=== PATIENT | male | born 1960 | race Caucasian/White ===

== ENCOUNTER 2022-10-02 11:27 | Emergency (ER) | payer BC, SELFPAY ==
[2022-10-02 11:41] VITALS: BP 135/101; PULSE 99; RESP 16; TEMP 36.3; O2SAT 100
--- NOTE | 2022-10-02 12:01 | ED.GENADULT ---
HPI - General Adult General Chief complaint: Headache Stated complaint: NO ENERGY/HEAD PRESSURE Time Seen by Provider: 10/02/22 11:47 Source: patient, family () and RN notes reviewed Mode of arrival: ambulatory Limitations: no limitations History of Present Illness HPI narrative: Patient presents today complaining of a 2 week history of midline to left sided head pressure. Denies pain. He is also reporting decreased energy, difficulty concentrating, dizziness and lightheadedness. also states patient has had some unexpected weight loss over the past 6 weeks, but cannot specify how much. Patient states he has these episodes daily in the typically last from approximately 9:00 a.m. to 2:00 p.m. before resolving. Denies nausea, vomiting, fever, sweats and chills, sinus or URI symptoms, chest pain, shortness of breath, abdominal pain. Patient takes herbal supplements for his symptoms. Patient states it has been approximately 20 years since he has had a PCP or had any routine medical care. Related Data Home Medications Medication Instructions Recorded Confirmed No Home Medications 10/02/22 10/02/22 Allergies Allergy/AdvReac Type Severity Reaction Status Date / Time No Known Allergies Allergy Verified 10/02/22 12:13 Review of Systems Review of Systems: CONSTITUTIONAL: Denies body aches, fever, chills, or sweats.+ fatigue, unexpected weight loss EYES: Denies visual changes, redness, or discharge. ENT: Denies rhinorrhea, congestion, sore throat, or otalgia. CARDIOVASCULAR: Denies chest pain, palpitations, or edema. RESPIRATORY: Denies cough or dyspnea. GASTROINTESTINAL: Denies abdominal pain, nausea, vomiting, or diarrhea. GENITOURINARY: Denies dysuria or hematuria. SKIN: Denies rash, itching, or wounds. MUSCULOSKELETAL: Denies back pain, joint pain, or myalgia. NEUROLOGIC: Denies headache, numbness, tingling, or weakness.++ head pressure , difficulty concentrating, dizziness, lightheadedness PSYCH: Denies depression or anxiety. PENDING SALE TO [facility] Family History Family History Mother Patient's mother is in good health Father Patient's father is in good health Sibling Patient's sister is in good health Patient's brother is in good health Social History Social History (Reviewed 10/02/22 @ 12:13 by Eloise Yañez, [facility], ) Smoking status: Never smoker Alcohol intake: never Comments At time of signature, I have reviewed and agree with nursing past medical, surgical, social and family history unless otherwise noted. Please see nursing chart for further information. There is no relevant family history pertinent to the presenting complaint Exam Narrative: GENERAL: Well-appearing, well-nourished, and in no acute distress. HEAD: Normocephalic, atraumatic. EYES: EOMI. PERRL. No nystagus. No redness or drainage. Conjunctivae normal. ENT: Mucous membranes pink and moist. Nares clear. No rhinorrhea. TMs normal bilaterally. Throat normal. Uvula midline. NECK: Normal AROM. Supple. No lymphadenopathy. CHEST: No respiratory distress. Clear to auscultation. HEART: Regular rate and rhythm. No murmur appreciated. Normal peripheral pulses. ABDOMEN: Soft, nontender, nondistended, normal active bowel sounds. EXTREMITIES: Normal range of motion. No edema. Dorsiflexion and plantar flexion equal and strong against resistance. Hand electrician's helper equal and strong. SKIN: Warm, dry, no rash. Capillary refill normal. Normal skin turgor. NEURO: No focal deficits. Alert and oriented x3. Gait steady. PSYCH: Patient talking in tangents. Difficult to get straight answers to questions. Course Course Level of Care: Express Care Visit Vital Signs Vital signs: Vital Signs Temperature 97.4 F L 10/02/22 11:41 Pulse Rate 99 10/02/22 11:41 Respiratory Rate 16 10/02/22 11:41 Blood Pressure 135/101 H 10/02/22 11:41 Pulse Oximetry 100 10/02/22 11:41
== END 2022-10-02 12:11 | disposition short-term general hospital (02) ==
PROVIDERS: Emergency Provider Nurse Practitioner
DX: R41.840 Attention and concentration deficit (principal); R63.4 Abnormal weight loss; R51.9 Headache, unspecified
CPT/HCPCS: 99212; G0463

== ENCOUNTER 2022-10-02 12:28 | Emergency (ER) | payer BC, SELFPAY ==
--- NOTE | ~2022-10-02 | CT_ITS ---
EXAMINATION: CT brain wo con DATE: 10/02/2022 13:46 INDICATION: Intermittent headaches with confusion for 2 weeks TECHNIQUE: Computed tomography (CT) of the head was performed without intravenous contrast. The mA wa s adjusted according to patient size. Iterative reconstruction technique was employed. Exam dose: 60 5.33 mGy-cm total exam DLP. COMPARISON: None FINDINGS: No intracranial mass lesion or hemorrhage or cerebrovascular accident is detected. No midli ne shift or mass effect. No subdural or epidural hematoma. No fracture or bone destruction of the cranial vault. No significant abnormality of the mastoid air c ells are included paranasal sinuses. IMPRESSION: No significant abnormality Reviewed, dictated and finalized at [facility]. Reviewed, dictated and finalized at location [facility]. IMPRESSION: No significant abnormality
[2022-10-02 12:35] VITALS: BP 130/92; PULSE 90; RESP 16; TEMP 36.5; O2SAT 98
--- NOTE | 2022-10-02 13:27 | ED.HA ---
HPI - Headache General Chief Complaint: Headache Stated Complaint: pressure in head/lethargy Time Seen by Provider: 10/02/22 12:59 History of Present Illness HPI Narrative: Patient is a 62-year-old male presenting with intermittent headaches. Patient states over the last several weeks he has had intermittent midline pressure-like headaches that seem to come on randomly. States that he feels confused during these episodes. States that the pressure increases for several hours and then will spontaneously improved. States he has not taken any medications as he likes to stay away from them. States that during these episodes he feels like his vision is a bit blurrier than normal. He denies numbness or weakness, speech changes, ataxia. Denies fevers or chills, chest pain, shortness of breath, cough, abdominal pain, nausea or vomiting, leg swelling. Related Data Home Medications Medication Instructions Recorded Confirmed No Home Medications 10/02/22 10/02/22 Allergies Allergy/AdvReac Type Severity Reaction Status Date / Time No Known Allergies Allergy Verified 10/02/22 12:13 Review of Systems Review of Systems: All systems reviewed & are unremarkable except as noted in HPI and below PMFSH Family History Family History Mother Patient's mother is in good health Father Patient's father is in good health Sibling Patient's sister is in good health Patient's brother is in good health Social History Social History Smoking status: Never smoker Alcohol intake: never Exam Narrative: GENERAL: Well-appearing, well-nourished, and in no acute distress. HEAD: Normocephalic, atraumatic. EYES: PERRLA and EOMI. ENT: Nares clear, no rhinorrhea or epistaxis. Mucous membranes moist. NECK: Supple. CHEST: No respiratory distress. HEART: Regular rate and rhythm. ABDOMEN: nondistended EXTREMITIES: Normal range of motion. No edema. SKIN: Warm, dry, no rash. NEURO: No focal deficits. Alert and oriented x3. no pronator drift, coordination is intact PSYCH: Normal mood and affect. Course Vital Signs Vital signs: Vital Signs Temperature 97.7 F 10/02/22 12:35 Pulse Rate 90 10/02/22 12:35 Respiratory Rate 16 10/02/22 12:35 Blood Pressure 130/92 H 10/02/22 12:35 Pulse Oximetry 98 10/02/22 12:35 Temperature 97.7 F 10/02/22 12:35 Pulse Rate 90 10/02/22 12:35 Respiratory Rate 16 10/02/22 12:35 Blood Pressure 130/92 H 10/02/22 12:35 Pulse Oximetry 98 10/02/22 12:35 MDM - Headache MDM Narrative Medical decision making narrative: Patient is a 62-year-old male presenting with intermittent headache for the last several weeks. Vitals within normal limits. Exam is unremarkable. Patient is neurologically intact. Patient declines medications at this time. We will obtain CT brain. CT brain shows no acute abnormalities. On reevaluation, the patient is sitting comfortably. Discussed the reassuring imaging. Advised that he follow-up with primary care and neurology. Appropriate return precautions given. Patient voiced understanding and is agreeable with plan. Discharged in stable condition. Differential Diagnosis Differential diagnosis: Likely headache Medical Records Attestation: I reviewed the patient's medical records. Imaging Data Radiologist's impression: ITS Impressions Head CT 10/02/22 14:18 IMPRESSION: No significant abnormality Critical Care Time Critical Care Time Critical Care Time: No Discharge Plan Discharge Clinical Impression: Headache, Difficulty concentrating Patient Disposition: Home, Self-Care Condition: Stable Instructions: Antibiotic Form, Acute Headache (ED) Additional Instructions: The CT scan of your brain today shows no abnormalities. Please follow-up with primary care and neurology. You may use T
== END 2022-10-02 15:15 | disposition home or self-care (01) ==
PROVIDERS: Emergency Provider Emergency Medicine
DX: R51.9 Headache, unspecified (principal); R41.89 Other symptoms and signs involving cognitive functions and awareness
CPT/HCPCS: 70450; 99284

== ENCOUNTER 2022-11-11 17:44 | Inpatient (IN) | payer BC, SELFPAY ==
[2022-11-11] VITALS (16 sets, daily range): BP systolic 100–145; BP diastolic 77–90; PULSE 65–89; RESP 15–24; TEMP 36.1–36.8; O2SAT 97–100; BMI 20.3
--- NOTE | ~2022-11-11 | XR_ITS ---
Portable chest x-ray Comparison: None Clinical History: Aspiration pneumonia Findings: Lungs are clear, without focal consolidation or pleural effusion. Cardiomediastinal silho uette is unremarkable. Bones and soft tissues are unremarkable. Impression: Clear lungs. Reviewed, dictated and finalized at location [facility]. Impression: Clear lungs.
--- NOTE | ~2022-11-11 | CT_ITS ---
EXAMINATION: CT brain wo con DATE: 11/11/2022 18:44 INDICATION: Altered mental status. TECHNIQUE: Computed tomography (CT) of the head was performed without intravenous contrast. The mA wa s adjusted according to patient size. Iterative reconstruction technique was employed. The dose-lengt h product was 681.00 mGy-cm. COMPARISON: Head CT 10/02/2022 FINDINGS: There is no intracranial hemorrhage, acute infarction, or abnormal intracranial mass lesion . The ventricles are normal in size. There is anteroposterior elongation of the ocular globes. There is mild mucosal thickening in the ethmoid sinuses. The mastoid air cells are normal. IMPRESSION: 1. Normal brain. Reviewed, dictated and finalized at location E. IMPRESSION: 1. Normal brain.
--- NOTE | 2022-11-11 17:54 | ECG_ITS ---
Measurements Intervals [place] Rate: 81 P: 71 SC: 146 QRS: 85 QRSD: 142 T: 55 QT: 434 QTc: 507 Interpretive Statements SINUS RHYTHM RIGHT BUNDLE BRANCH BLOCK ABNORMAL ECG NO PREVIOUS ECG AVAILABLE FOR COMPARISON Electronically Signed On 11-11-2022 20:29:38 CDT by Ezio Hayes D.O.
--- NOTE | 2022-11-11 18:10 | ED.AMS ---
HPI - Altered Mental Status General Chief Complaint: Altered Mental Status <Yessica Ordaz APRN - Last Filed: 11/12/22 02:48> Stated Complaint: unresponsive <Yessica Ordaz APRN - Last Filed: 11/12/22 02:48> Time Seen by Provider: 11/11/22 17:59 <Yessica Ordaz APRN - Last Filed: 11/12/22 02:48> Source: patient <Yessica Ordaz APRN - Last Filed: 11/12/22 02:48> Mode of arrival: ambulatory <Yessica Ordaz APRN - Last Filed: 11/12/22 02:48> Limitations: no limitations <Yessica Ordaz APRN - Last Filed: 11/12/22 02:48> History of Present Illness HPI narrative: 62 year old male brought in by EMS with concerns of being un responsive. is at the bedside and states that he went to his care this morning about 8 am and has been sitting there ever since. He has not responded to her all day. Was slumped over the stearing wheel at that is how EMS found him. He was brought her with ice packs cooling him. Per he had no access to medications. She says he doesn't like medications and he would throw them away. <Yessica Ordaz APRN - Last Filed: 11/12/22 02:48> MD complaint: decreased responsiveness <Yessica Ordaz APRN - Last Filed: 11/12/22 02:48> Onset (ago): hour(s) <Yessica Ordaz APRN - Last Filed: 11/12/22 02:48> Timing confirmed by: spouse <Yessica Ordaz APRN - Last Filed: 11/12/22 02:48> Consistency of symptoms: constant <Yessica Ordaz APRN - Last Filed: 11/12/22 02:48> Related Data Home Medications: Home Medications Medication Instructions Recorded Confirmed divalproex 500 mg tablet,delayed 500 mg PO HS 11/11/22 11/11/22 release ergocalciferol (vitamin D2) 1,250 1,250 unit PO WEEKLY 11/11/22 11/11/22 mcg (50,000 unit) capsule escitalopram oxalate 20 mg tablet 20 mg PO QAM 11/11/22 11/11/22 quetiapine 100 mg tablet 100 mg PO HS 11/11/22 11/11/22 <Yessica Ordaz APRN - Last Filed: 11/12/22 02:48> Allergies/Adverse Reactions: Allergies Allergy/AdvReac Type Severity Reaction Status Date / Time No Known Allergies Allergy Verified 11/11/22 18:20 <Yessica Ordaz APRN - Last Filed: 11/12/22 02:48> Review of Systems Review of Systems: ROS unobtainable: Yes unobtainable due to mental status <Yessica Ordaz APRN - Last Filed: 11/12/22 02:48> [facility] Past Medical History Medical History: Medical History (Updated 11/12/22 @ 02:38 by Yessica Ordaz APRN) Bipolar disorder <Yessica Ordaz APRN - Last Filed: 11/12/22 02:48> Family History Family History: Family History (Updated 11/11/22 @ 23:26 by Rosanne Jean RN) Mother Hypertension Father Crohn disease Sibling Patient's brother is in good health Patient's sister is in good health <Yessica Ordaz APRN - Last Filed: 11/12/22 02:48> Social History Social History: Social History Smoking status: Never smoker Alcohol intake: never Substance use: never Spiritual care concerns: No <Yessica Ordaz APRN - Last Filed: 11/12/22 02:48> Exam Const: General: cachectic and underweight <Yessica Ordaz APRN - Last Filed: 11/12/22 02:48> Orientation/consciousness: patient obtunded <Yessica Ordaz APRN - Last Filed: 11/12/22 02:48> HENMT: Head: atraumatic <Yessica Ordaz APRN - Last Filed: 11/12/22 02:48> Face/Nose/Sinus: Normal external nose present <Yessica Ordaz APRN - Last Filed: 11/12/22 02:48> Mouth: Yes dry mucous membranes <Yessica Ordaz APRN - Last Filed: 11/12/22 02:48> Eyes: Conjunctivae: conjunctivae normal <Yessica Dhaliwal - Last Filed: 11/12/22 02:48> Pupils: Equal, round and reactive pupils present <Yessica Dhaliwal - Last Filed: 11/12/22 02:48> Chest: Chest palpation & inspection: normal inspection of the chest <Yessica Dhaliwal - Last Filed: 11/12/22 02:48> Resp: Effort & Inspection: normal respiratory effort <Yessica Easley
[2022-11-11 18:13] LABS: Basophils Percent Auto 0.2 % (0.2-1.2); Hematocrit 42.2 % (42.0-52.0); Hemoglobin 14.4 g/dL (14.0-18.0); Immature Granulocyte Absolute 0.04 K/mm3 (0.00-0.031); Immature Granulocyte Percent A 0.4 % (0-0.5); Lymphocytes Absolute Auto 0.63 K/mm3 (0.9-3.2); Lymphocytes Percent Auto 5.6 % (18.3-44.2); Mean Corpuscular HGB Conc 34.1 g/dl (32-36); Mean Corpuscular Hemoglobin 32.1 pg (26-34); Mean Platelet Volume 10.2 fl (7.4-10.4); Monocytes Absolute Auto 0.8 K/mm3 (0.1-0.6); Monocytes Percent Auto 6.8 % (2.6-8.5); Neutrophils Absolute Auto 9.9 K/mm3 (1.3-6.7); Platelet Count Result 196 k/mm3 (150-375); Red Blood Count 4.49 M/mm3 (4.6-6.20); Red Cell Distribution Width 12.3 % (11.5-14.5); White Blood Count 11.3 K/mm3 (4.5-10.0)
[2022-11-11] MEDS: SODIUM CHLORIDE 0.9% IV 2,000 ML 999 ML IV CONT ×2 (18:13→20:39)
[2022-11-11] MEDS: NALOXONE HCL INJ 2 MG/2 ML AMP IV PUSH (18:13)
[2022-11-11 18:18] LABS: Glucose Point of Care 100 mg/dl (65-105)
[2022-11-11 18:22] LABS: Appearance Urine Clear (Clear); Bacteria Urine None Seen /hpf; Bilirubin Urine Negative (Negative); Blood Urine 2+ (Negative); Color Urine Yellow (Yellow); Glucose Urine UA Negative (Negative); Ketones Urine Negative (Negative); Leukocyte Esterase Ur Negative LEU/UL (Negative); Nitrate Urine Negative (Negative); Protein Urine Trace mg/dL (Negative); RBC Urine 0-2 /hpf (0-2); Specific Grav Ur 1.016 (1.001-1.035); Squamous Epithelial Cell Urine None seen /hpf (Few); Urobilinogen Urine 0.2 mg/dL (<2.0); WBC Urine 0-5 /hpf
[2022-11-11 18:23] LABS: Prothrombin Time 13.8 Seconds (11.1-14.7)
[2022-11-11 18:24] LABS: Partial Thromboplastin Time 27.7 SECONDS (22.3-36.8)
[2022-11-11 18:25] LABS: Ethanol < 10 mg/dL (<10)
[2022-11-11 18:27] LABS: Alveolar/Arterial O2 Gradient 10.7 mmHg; Base Excess ABG -0.8 mEq/l (+/-2.0); Fractional Inspired Oxygen 21 %; HCO3 ABG 25.1 mEq/l (22.0-26.0); Oxygen Content ABG 17.5 %vol (16.0-22.0); Oxygen Saturation ABG 95.9 % (95.0-100.0); Oxyhemoglobin 94.2 % THb (90.0-100.0); PCO2 ABG 45.9 mmHg (35.0-45.0); PO2 ABG 84.1 mmHg (80.0-100.0); Total Hemoglobin 13.2 g/dL (12.0-18.0); pH ABG 7.355 (7.350-7.450)
[2022-11-11 18:28] LABS: Device ROOM AIR; Modified Allen's Test Pass; Site Drawn RIGHT RADIAL
[2022-11-11 18:29] LABS: Add Urine Microscopic? YES
[2022-11-11 18:30] LABS: Amphetamine Screen Urine Negative (Negative); Barbiturate Screen Urine Negative (Negative); Benzodiazepines Screen Urine Negative (Negative); Cannabinoid Screen Urine Negative (Negative); Cocaine Screen Urine Negative (Negative); Methadone Screen Urine Negative (Negative); Opiate Screen Urine Negative (Negative); Phencyclidine Screen Urine Negative (Negative)
[2022-11-11 18:35] LABS: Acetaminophen < 10 ug/mL (10-30); Salicylate < 1.0 mg/dL (2-20)
[2022-11-11 19:15] LABS: Alanine Aminotransferase 28 U/L (6-50); Albumin Level 3.9 g/dL (3.5-5.1); Alkaline Phosphatase 50 U/L (38-126); Anion Gap 7 mmol/L (8-16); Aspartate Amino Transferase 70 U/L (17-59); Bilirubin,Total 0.6 mg/dL (0.2-1.3); Blood Urea Nitrogen 19 mg/dL (9-20); Calcium 8.6 mg/dL (8.4-10.2); Carbon Dioxide 27 mmol/L (22-30); Chloride 107 mmol/L (98-107); Estimated CRCL calculation 46 ml/min; Estimated Glomerular Filt Rate > 60; Glucose 103 mg/dL (65-110); Potassium 4.4 mmol/L (3.4-5.0); Sodium 141 mmol/L (137-145)
[2022-11-11 19:35] LABS: Creatine Kinase 4393 U/L (55-170)
--- NOTE | 2022-11-11 20:09 | PM.IMHP ---
H&P: HPI History of Present Illness Date/Time: 11/11/22 20:09 Chief Complaint: Altered mental status Narrative: This is a 62-year-old male with past medical history significant for bipolar disorder, according to patient has not been taking his medications. Patient was brought to the emergency room due to altered mental status. He was found obtunded in his car when he had spent most of the day according to he was trying to sleep and went to his car to have some quiet. In emergency room patient is unresponsive, states that seemingly patient has overdosed on his medications after prior to all of the above to he was her in the bathroom on rattling with his meds and a toilet flush. Patient is on divalproex Lexapro and Seroquel. Recently patient had tried to commit suicide. It is believed the patient overdosed on his medications poison control has been called patient is been admitted to intensive care unit on suicide precautions. A CT of the head was reported as: EXAMINATION: CT brain wo con DATE: 11/11/2022 18:44 INDICATION: Altered mental status. TECHNIQUE: Computed tomography (CT) of the head was performed without intravenous contrast. The mA was adjusted according to patient size. Iterative reconstruction technique was employed. The dose-length product was 681.00 mGy-cm. COMPARISON: Head CT 10/02/2022 FINDINGS: There is no intracranial hemorrhage, acute infarction, or abnormal intracranial mass lesion. The ventricles are normal in size. There is anteroposterior elongation of the ocular globes. There is mild mucosal thickening in the ethmoid sinuses. The mastoid air cells are normal. IMPRESSION: 1. Normal brain. Review of Systems Review of Systems: ROS unobtainable: Yes unobtainable due to mental status (Stuporous) [facility] Family History Family History (Updated 11/11/22 @ 23:26 by Rosanne Jean RN) Mother Hypertension Father Crohn disease Sibling Patient's brother is in good health Patient's sister is in good health Social History Social History Smoking status: Never smoker Alcohol intake: never Substance use: never Spiritual care concerns: No Meds Home Medications and Allergies Home Medications Medication Instructions Recorded Confirmed Type divalproex 500 mg tablet,delayed 500 mg PO HS 11/11/22 11/11/22 History release ergocalciferol (vitamin D2) 1,250 1,250 unit PO WEEKLY 11/11/22 11/11/22 History mcg (50,000 unit) capsule escitalopram oxalate 20 mg tablet 20 mg PO QAM 11/11/22 11/11/22 History quetiapine 100 mg tablet 100 mg PO HS 11/11/22 11/11/22 History Allergies Allergy/AdvReac Type Severity Reaction Status Date / Time No Known Allergies Allergy Verified 11/11/22 18:20 Vital Signs Vital Signs - 24 hr 11/11/22 17:44 11/11/22 17:48 11/11/22 17:50 Temperature 98.3 F Pulse Rate 82 87 Respiratory Rate 24 H 17 Blood Pressure 129/84 113/77 Pulse Oximetry 99 Oxygen Delivery Room Air 11/11/22 18:11 11/11/22 18:16 11/11/22 18:17 Temperature 98.3 F 98.1 F 98.1 F Pulse Rate 83 83 85 Respiratory Rate 20 19 18 Blood Pressure 122/80 Pulse Oximetry Oxygen Delivery 11/11/22 18:30 11/11/22 18:31 11/11/22 18:46 Temperature 97.6 F 97.6 F 97.6 F Pulse Rate 85 84 80 Respiratory Rate 20 16 20 Blood Pressure 135/82 Pulse Oximetry Oxygen Delivery 11/11/22 19:00 Temperature 97.6 F Pulse Rate 76 Respiratory Rate 19 Blood Pressure 100/79 Pulse Oximetry 100 Oxygen Delivery Exam Narrative: Patient is laying in a stretcher Const: General: comfortable, no acute distress, well developed and thin Nutritional Appearance: thin Orientation/consciousness: Other orientation findings (Unresponsive) Limitations: altered mental status (Unresponsive) Other: Patient is noted to have spontaneous movement of all 4 limbs, withdraws to painful stimuli. HENMT:
--- NOTE | 2022-11-11 20:20 | PC.NURSE ---
called [place] poison control and spoke with cesar. She states we need to get a lactic acid, and ammonia level. watch for prolong QT on EKG. She is sending over a full report.
[2022-11-11 20:33] LABS: Valproic Acid < 10.0 ug/mL (50-120)
--- NOTE | 2022-11-11 21:08 | ECG_ITS ---
Measurements Intervals [place] Rate: 81 P: 70 RI: 158 QRS: 74 QRSD: 145 T: 30 QT: 449 QTc: 524 Interpretive Statements SINUS RHYTHM RIGHT BUNDLE BRANCH BLOCK BASELINE ARTIFACT- V1-V3 ABNORMAL ECG COMPARED TO ECG 11/11/2022 18:07:22 NO SIGNIFICANT CHANGES Electronically Signed On 11-12-2022 6:45:23 CDT by Ezio Hayes D.O.
[2022-11-11 21:55] LABS: Ammonia 13 umol/L (9-30); Lactic Acid Reflex 1.9 mmol/L (0.7-2.0)
[2022-11-11] MEDS: SODIUM CHLORIDE 0.9% IV 1,000 ML 250 ML IV CONT (22:17)
--- NOTE | 2022-11-11 22:28 | ADMGEN ---
This patient, Norris Daniels, was admitted to Intensive Care Unit-3 at 2155 on 11/11/2022. Patient/family oriented to hospital policies and general routines including ID bracelet, bed and alarms, visiting hours, pain management, procedures, bathroom and other care routines, personal items, smoking policy, room service/diet, and visiting hours. Information on how to activate the Rapid Response Team has been discussed. Patient/Family are encouraged to report perceived risks to care and to ask questions if they do not understand what they are told or what they should do.
[2022-11-12] VITALS (9 sets, daily range): BP systolic 104–138; BP diastolic 72–96; PULSE 63–99; RESP 12–23; TEMP 36.1–37.6; O2SAT 97–100
[2022-11-12] MEDS: SODIUM CHLORIDE 0.9% IV 1,000 ML 250 ML IV CONT ×2 (02:12→06:40)
--- NOTE | 2022-11-12 03:08 | ECG_ITS ---
Measurements Intervals [place] Rate: 94 P: 59 SC: 138 QRS: 68 QRSD: 146 T: 25 QT: 384 QTc: 483 Interpretive Statements SINUS RHYTHM RIGHT BUNDLE BRANCH BLOCK ABNORMAL ECG COMPARED TO ECG 11/11/2022 22:04:41 NO SIGNIFICANT CHANGES Electronically Signed On 11-12-2022 6:47:03 CDT by Ezio Hayes D.O.
[2022-11-12 04:30] LABS: Hematocrit 37.9 % (42.0-52.0); Hemoglobin 12.7 g/dL (14.0-18.0); Mean Corpuscular HGB Conc 33.5 g/dl (32-36); Mean Corpuscular Hemoglobin 31.8 pg (26-34); Mean Corpuscular Volume 94.8 fl (80-100); Mean Platelet Volume 9.9 fl (7.4-10.4); Platelet Count Result 142 k/mm3 (150-375); Red Cell Distribution Width 12.5 % (11.5-14.5); White Blood Count 7.8 K/mm3 (4.5-10.0)
[2022-11-12 04:45] LABS: Alanine Aminotransferase 31 U/L (6-50); Alkaline Phosphatase 41 U/L (38-126); Anion Gap 0 mmol/L (8-16); Aspartate Amino Transferase 94 U/L (17-59); Bilirubin,Total 0.5 mg/dL (0.2-1.3); Blood Urea Nitrogen 18 mg/dL (9-20); Calcium 7.8 mg/dL (8.4-10.2); Carbon Dioxide 27 mmol/L (22-30); Chloride 116 mmol/L (98-107); Estimated CRCL calculation 56 ml/min; Estimated Glomerular Filt Rate > 60; Glucose 95 mg/dL (65-110); Magnesium 2.1 mg/dL (1.6-2.3); Phosphorus 4.3 mg/dL (2.5-4.5); Sodium 143 mmol/L (137-145)
[2022-11-12 05:09] LABS: Creatine Kinase 5021 U/L (55-170)
--- NOTE | 2022-11-12 08:34 | WPDCNINT ---
Assessment and Plan Assessment and plan (1) Overdose: Code(s): T50.901A - Poisoning by unspecified drugs, medicaments and biological substances, accidental (unintentional), initial encounter Status: Acute Assessment and Plan: 11/11: Patient presented after being found unresponsive in his car. According the patient went to his car at 8:00 a.m. in the morning and was found unresponsive at this stating will at 5:00 p.m. that is when the EMS was called and was brought to the ED with [facility]. -in the ER patient was unresponsive and would wake up to deep sternal rub was protecting his airways. -thought to have taken Seroquel, Lexapro, Depakote as the found empty bottles of his medications -poison control was notified, recommended supportive care, IV fluids, serial EKGs to monitor QTC -EKGs noted, normal QTC until this morning -patient is more awake unable to answer questions but is slow to respond -he agreed to being suicidal -patient received 4 L IV fluid bolus -continue maintenance IV fluids, will decrease the rate. -urine output has been good (2) Suicidal behavior: Code(s): R45.89 - Other symptoms and signs involving emotional state Status: Acute Assessment and Plan: Patient did agree to being suicidal this morning upon questioning -patient already on suicide precautions -bedside sitter -patient is medically stable, will have care coordination crisis management evaluate the patient (3) Altered mental status: Code(s): R41.82 - Altered mental status, unspecified Status: Acute Assessment and Plan: Altered mental status most likely related to medication overdose -adequately fluid-resuscitated with good urine output -mental status improving -continue to monitor (4) Bipolar disorder: Code(s): F31.9 - Bipolar disorder, unspecified Status: Acute Assessment and Plan: Patient on Depakote, Seroquel and Lexapro at home, will continue to hold all these medications as he has overdosed on them (5) Rhabdomyolysis: Code(s): M62.82 - Rhabdomyolysis Status: Acute Assessment and Plan: Patient was in the car from 8:00 a.m. to around 5 p.m. on the day of admission -CK levels are elevated, -received adequate amount of IV fluids -continue maintenance IV fluids, will decrease rate to 125 mL/hour Plan DVT prophylaxis: Lovenox Stress ulcer prophylaxis: Not indicated Nutrition: Currently NPO, once he is more awake will start finger foods Code Status: Full code Critical Care Time Spent: 49 minutes Due to a high probability of clinically significant, life threatening deterioration, the patient required my highest level of preparedness to intervene emergently and I personally spent this critical care time directly and personally managing the patient. This critical care time included obtaining a history; examining the patient; pulse oximetry; ordering and review of studies; arranging urgent treatment with development of a management plan; evaluation of patient's response to treatment; frequent reassessment; and discussions with other providers. It was exclusive of separately billable procedures and treating other patients and teaching time. Please see Assessment and Plan section and the rest of the note for further information on patient assessment and treatment This dictation may have been done utilizing a voice recognition system. Attempts have been made to correct errors. However, there may be uncorrected grammatical, spelling, and recognitions errors present. Business Analytics Specialist Consult Note Consult date: 11/12/22 Reason for consult: Altered mental status, medication overdose, suicidal behavior HPI: Norris Daniels is a 62 year old male with past medical history of depression, bipolar, suicidal behavior 1 month ago presented the ED on 11/11/2022 via EMS today was found unresponsive at the steering wheel off his car. According the records the pro
[2022-11-12] MEDS: ENOXAPARIN 40 MG/0.4 ML SYRINGE SUB-Q (09:15)
--- NOTE | 2022-11-12 09:29 | PM.IMPN ---
Progress Note: A&P Assessment and Plan (1) Overdose: Code(s): T50.901A - Poisoning by unspecified drugs, medicaments and biological substances, accidental (unintentional), initial encounter Status: Acute Assessment and Plan: 11/11: Patient presented after being found unresponsive in his car. According the patient went to his car at 8:00 a.m. in the morning and was found unresponsive at this stating will at 5:00 p.m. that is when the EMS was called and was brought to the ED with [facility]. -in the ER patient was unresponsive and would wake up to deep sternal rub was protecting his airways. -thought to have taken Seroquel, Lexapro, Depakote as the found empty bottles of his medications -poison control was notified, recommended supportive care, IV fluids, serial EKGs to monitor QTC -EKGs noted, normal QTC until this morning -patient is more awake unable to answer questions but is slow to respond -he agreed to being suicidal -patient received 4 L IV fluid bolus -continue maintenance IV fluids, will decrease the rate. -urine output has been good 11/12: much more alert, still quite somnolent. will need crisis eval and psych placement (2) Suicidal behavior: Code(s): R45.89 - Other symptoms and signs involving emotional state Status: Acute Assessment and Plan: Patient did agree to being suicidal this morning upon questioning -patient already on suicide precautions -bedside sitter -patient is medically stable, will have care coordination crisis management evaluate the patient (3) Altered mental status: Code(s): R41.82 - Altered mental status, unspecified Status: Acute Assessment and Plan: Altered mental status most likely related to medication overdose -adequately fluid-resuscitated with good urine output -mental status improving -continue to monitor (4) Bipolar disorder: Code(s): F31.9 - Bipolar disorder, unspecified Status: Acute Assessment and Plan: Patient on Depakote, Seroquel and Lexapro at home, will continue to hold all these medications as he has overdosed on them (5) Rhabdomyolysis: Code(s): M62.82 - Rhabdomyolysis Status: Acute Assessment and Plan: Patient was in the car from 8:00 a.m. to around 5 p.m. on the day of admission -CK levels are elevated, -received adequate amount of IV fluids -continue maintenance IV fluids, will decrease rate to 125 mL/hour Plan DVT prophylaxis: Lovenox Stress ulcer prophylaxis: Not indicated Nutrition: Currently NPO Code Status: Full code Subjective Date/time seen: 11/12/22 09:29 Interval history: 62-year-old male with history of psychiatric conditions presenting with unresponsiveness and currently being treated for intentional overdose in the ICU. No overnight events noted. No chest pain or shortness of breath. No nausea, vomiting or diarrhea. No fevers or chills. Still quite somnolent, but more alert today than yesterday. Review of Systems Review of Systems: ROS unobtainable: Yes unobtainable due to mental status Exam Narrative: General: Patient is awake but somnolent, in no acute distress HEENT:? Pupils equal and reactive, sclera is clear, moist oral mucosa Neck:? Supple Respiratory:? Clear to auscultation bilaterally, adequate air entry, no wheezing noted Cardiac:? S1-S2 normal, regular rate and rhythm Abdomen:? Soft, nontender, nondistended, normoactive bowel sounds Extremities:? No edema, palpable pedal pulse Neuro:? Patient is awake, somnolent, slow to respond, answers to questions, follows simple commands in all extremities Skin:? Skin scar noted on his neck, skin is otherwise warm and dry Psych:? Depressed affect Objective Data Vital Signs Vital Signs: Vital Signs - 24 hr 11/11/22 17:44 11/11/22 17:48 11/11/22 17:50 Temperature 98.3 F Pulse Rate 82 87 Respiratory Rate 24 H 17 Blood Pressure 129/84 113/77 Pulse Oximetry 99
[2022-11-12] MEDS: SODIUM CHLORIDE 0.9% IV 1,000 ML 125 ML IV CONT (19:46)
[2022-11-13] VITALS: BP 143/90; PULSE 64; RESP 18; TEMP 37.1; O2SAT 100
[2022-11-13] MEDS: SODIUM CHLORIDE 0.9% IV 1,000 ML 125 ML IV CONT ×2 (03:38→11:13)
[2022-11-13 03:57] LABS: Basophils Percent Auto 0.5 % (0.2-1.2); Hemoglobin 14.3 g/dL (14.0-18.0); Immature Granulocyte Absolute 0.02 K/mm3 (0.00-0.031); Immature Granulocyte Percent A 0.3 % (0-0.5); Lymphocytes Absolute Auto 1.46 K/mm3 (0.9-3.2); Lymphocytes Percent Auto 18.4 % (18.3-44.2); Mean Corpuscular HGB Conc 33.3 g/dl (32-36); Mean Corpuscular Hemoglobin 32.3 pg (26-34); Mean Corpuscular Volume 97.1 fl (80-100); Mean Platelet Volume 10.2 fl (7.4-10.4); Monocytes Absolute Auto 0.6 K/mm3 (0.1-0.6); Monocytes Percent Auto 7.3 % (2.6-8.5); Neutrophils Absolute Auto 5.8 K/mm3 (1.3-6.7); Neutrophils Percent Auto 73.5 % (45.5-73.1); Platelet Count Result 161 k/mm3 (150-375); Red Blood Count 4.43 M/mm3 (4.6-6.20); Red Cell Distribution Width 12.5 % (11.5-14.5); White Blood Count 7.9 K/mm3 (4.5-10.0)
[2022-11-13 04:00] VITALS: BP 145/95; PULSE 95; RESP 20; TEMP 36.9; O2SAT 98
[2022-11-13 04:34] LABS: Alanine Aminotransferase 35 U/L (6-50); Albumin Level 3.4 g/dL (3.5-5.1); Alkaline Phosphatase 62 U/L (38-126); Anion Gap 9 mmol/L (8-16); Aspartate Amino Transferase 90 U/L (17-59); Bilirubin,Total 0.6 mg/dL (0.2-1.3); Blood Urea Nitrogen 19 mg/dL (9-20); Calcium 8.6 mg/dL (8.4-10.2); Carbon Dioxide 24 mmol/L (22-30); Chloride 116 mmol/L (98-107); Creatine Kinase 2370 U/L (55-170); Estimated CRCL calculation 56 ml/min; Estimated Glomerular Filt Rate > 60; Glucose 74 mg/dL (65-110); Magnesium 2.1 mg/dL (1.6-2.3); Phosphorus 4.1 mg/dL (2.5-4.5); Potassium 3.7 mmol/L (3.4-5.0); Sodium 149 mmol/L (137-145)
[2022-11-13 08:00] VITALS: BP 143/98; PULSE 93; PULSE 98; RESP 15; TEMP 36.7; O2SAT 99
[2022-11-13] MEDS: ENOXAPARIN 40 MG/0.4 ML SYRINGE SUB-Q (08:36)
--- NOTE | 2022-11-13 11:23 | PM.IMPN ---
Progress Note: A&P Assessment and Plan (1) Overdose: Code(s): T50.901A - Poisoning by unspecified drugs, medicaments and biological substances, accidental (unintentional), initial encounter Status: Acute Assessment and Plan: 11/11: Patient presented after being found unresponsive in his car. According the patient went to his car at 8:00 a.m. in the morning and was found unresponsive at this stating will at 5:00 p.m. that is when the EMS was called and was brought to the ED with [facility]. -in the ER patient was unresponsive and would wake up to deep sternal rub was protecting his airways. -thought to have taken Seroquel, Lexapro, Depakote as the found empty bottles of his medications -poison control was notified, recommended supportive care, IV fluids, serial EKGs to monitor QTC -EKGs noted, normal QTC until this morning -patient is more awake unable to answer questions but is slow to respond -he agreed to being suicidal -patient received 4 L IV fluid bolus -continue maintenance IV fluids, will decrease the rate. -urine output has been good 11/12: much more alert, still quite somnolent. will need crisis eval and psych placement 11/13: improving, increase po intake, pull piedra, d/c tele, plan to medically clear for crisis eval later today (2) Suicidal behavior: Code(s): R45.89 - Other symptoms and signs involving emotional state Status: Acute Assessment and Plan: Patient did agree to being suicidal upon questioning -patient already on suicide precautions -bedside sitter (3) Altered mental status: Code(s): R41.82 - Altered mental status, unspecified Status: Acute Assessment and Plan: appears to be resolving, still quite slowed, could be catatonia? (4) Bipolar disorder: Code(s): F31.9 - Bipolar disorder, unspecified Status: Acute Assessment and Plan: Patient on Depakote, Seroquel and Lexapro at home, will continue to hold all these medications as he has overdosed on them (5) Rhabdomyolysis: Code(s): M62.82 - Rhabdomyolysis Status: Acute Assessment and Plan: Patient was in the car from 8:00 a.m. to around 5 p.m. on the day of admission -CK levels are elevated -received adequate amount of IV fluids 11/13: d/c IVF, CK levels normalizing, monitor Plan DVT prophylaxis: Lovenox Stress ulcer prophylaxis: Not indicated Nutrition: regular diet Code Status: Full code Subjective Date/time seen: 11/13/22 11:23 Interval history: 62-year-old male with history of psychiatric conditions presenting with unresponsiveness and currently being treated for intentional overdose in the ICU. No overnight events noted. No chest pain or shortness of breath. No nausea, vomiting or diarrhea. No fevers or chills. Alert today, eager to eat and drink, somewhat tired and weak, still. Admits he has tried to harm himself in the past and this recent ingestion was intentional. Review of Systems Review of Systems: 12 point review of systems was assessed and was negative except as noted in the HPI Exam Narrative: General: No acute distress, alert and oriented per baseline HEENT:? Pupils equal and reactive, sclera is clear, moist oral mucosa Respiratory:? Clear to auscultation bilaterally, adequate air entry, no wheezing noted Cardiac:? S1-S2 normal, regular rate and rhythm Abdomen:? Soft, nontender, nondistended, normoactive bowel sounds Extremities:? No edema, palpable pedal pulse Neuro:? Slowed cognition noted, otherwise answers questions appropriately, no focal deficits noted Skin:? Skin scar noted on his neck, skin is otherwise warm and dry Psych:? Dysthymic mood, flattened affect Objective Data Vital Signs Vital Signs: Vital Signs - 24 hr 11/12/22 12:00 11/12/22 12:00 11/12/22 16:00 Temperature 99.4 F Pulse Rate 88 88 86 Respiratory Rate 18 Blood Pressure 130/96 H Pulse Oximetry 97
[2022-11-13 12:00] VITALS: BP 153/91; PULSE 80; RESP 20; TEMP 36.9; O2SAT 100
--- NOTE | 2022-11-13 14:35 | PC.NURSE ---
Spoke with Caitlin at poison control. No further recommendations and they will be closing his case.
[2022-11-13 15:56] VITALS: BP 156/96; PULSE 81; RESP 16; TEMP 36.4; O2SAT 100
[2022-11-14 00:46] VITALS: BP 148/98; PULSE 72; RESP 14; TEMP 36.8; O2SAT 100
[2022-11-14] MEDS: TAMSULOSIN HCL 0.4 MG CAPSULE PO (07:37)
[2022-11-14] MEDS: ENOXAPARIN 40 MG/0.4 ML SYRINGE SUB-Q (07:39)
[2022-11-14 08:00] VITALS: BP 146/94; PULSE 75; RESP 16; TEMP 36.9; O2SAT 100
--- NOTE | 2022-11-14 09:25 | PM.IMPN ---
Progress Note: A&P Assessment and Plan (1) Overdose: Code(s): T50.901A - Poisoning by unspecified drugs, medicaments and biological substances, accidental (unintentional), initial encounter Status: Acute Assessment and Plan: 11/11: Patient presented after being found unresponsive in his car. According the patient went to his car at 8:00 a.m. in the morning and was found unresponsive at this stating will at 5:00 p.m. that is when the EMS was called and was brought to the ED with [facility]. In the ER patient was unresponsive and would wake up to deep sternal rub was protecting his airways. Thought to have taken Seroquel, Lexapro, Depakote as the found empty bottles of his medications. Poison control was notified, recommended supportive care, IV fluids, serial EKGs to monitor QTC. EKGs noted, normal QTC until this morning. Patient endorsed being suicidal. 11/12: much more alert, still quite somnolent. will need crisis eval and psych placement 11/13: improving, increase po intake, pull piedra, d/c tele, plan to medically clear for crisis eval later today 11/14: disposition pending crisis eval, will need psych placement for safety, ativan as needed, consider restarting psych meds soon (2) Suicidal behavior: Code(s): R45.89 - Other symptoms and signs involving emotional state Status: Acute Assessment and Plan: Patient did agree to being suicidal upon questioning -patient already on suicide precautions -bedside sitter (3) Altered mental status: Code(s): R41.82 - Altered mental status, unspecified Status: Acute Assessment and Plan: appears to be resolving, still quite slowed, could be catatonia? (4) Bipolar disorder: Code(s): F31.9 - Bipolar disorder, unspecified Status: Acute Assessment and Plan: Patient on Depakote, Seroquel and Lexapro at home, will continue to hold all these medications as he has overdosed on them (5) Rhabdomyolysis: Code(s): M62.82 - Rhabdomyolysis Status: Acute Assessment and Plan: Patient was in the car from 8:00 a.m. to around 5 p.m. on the day of admission -CK levels are elevated -received adequate amount of IV fluids 7/15: d/c IVF, CK levels normalizing, monitor 11/14: Ck pending Plan DVT prophylaxis: Lovenox Stress ulcer prophylaxis: Not indicated Nutrition: regular diet Code Status: Full code Subjective Date/time seen: 11/14/22 09:25 medically stable, medically cleared Interval history: 62-year-old male with history of psychiatric conditions presenting with unresponsiveness and currently being treated for intentional overdose in the ICU. No overnight events noted. No chest pain or shortness of breath. No nausea, vomiting or diarrhea. No fevers or chills. Very non verbal today, crying, withdrawn, but alert and oriented. Review of Systems Review of Systems: 12 point review of systems was assessed and was negative except as noted in the HPI Exam Narrative: General: Actively crying and upset HEENT:? Pupils equal and reactive, sclera is clear, moist oral mucosa Respiratory:? Clear to auscultation bilaterally, adequate air entry, no wheezing noted Cardiac:? S1-S2 normal, regular rate and rhythm Abdomen:? Soft, nontender, nondistended, normoactive bowel sounds Extremities:? No edema, palpable pedal pulse Neuro:? Slowed cognition noted, otherwise answers questions appropriately, no focal deficits noted Skin:? Skin scar noted on his neck, skin is otherwise warm and dry Psych:? Dysthymic mood, flattened affect Objective Data Vital Signs Vital Signs: Vital Signs - 24 hr 11/13/22 12:00 11/13/22 12:00 11/13/22 15:56 Temperature 98.4 F 97.6 F Pulse Rate 80 80 81 Respiratory Rate 20 16 Blood Pressure 153/91 H 156/96 H Pulse Oximetry 100 100 11/14/22 00:46 11/14/22 08:00 Temperature 98.2 F 98.5 F Pulse Rate 72 75 Respiratory Rate 14 16 Blood Pr
[2022-11-14 10:53] LABS: Creatine Kinase 2244 U/L (55-170)
--- NOTE | 2022-11-14 12:40 | PC.NURSE ---
Dr. Wolf here to see patient. orders received for cbc, cmp to be added to earlier lab draw. patient having a hard time answering questions. states having emotional pain and ativan 1 mg iv x1 now order received. order received for activity as tolerated as well. Dr. Wolf will come back later to talk with patient if he is less catatonic
[2022-11-14 12:46] LABS: Hematocrit 43.8 % (42.0-52.0); Hemoglobin 14.7 g/dL (14.0-18.0); Mean Corpuscular HGB Conc 33.6 g/dl (32-36); Mean Corpuscular Volume 95.2 fl (80-100); Mean Platelet Volume 10.7 fl (7.4-10.4); Platelet Count Result 173 k/mm3 (150-375); Red Cell Distribution Width 12.2 % (11.5-14.5)
[2022-11-14] MEDS: LORazepam INJ (*CRX) 2 MG/ML VIAL 1 MG IV PUSH (12:48)
[2022-11-14 12:54] LABS: Alanine Aminotransferase 41 U/L (6-50); Albumin Level 3.8 g/dL (3.5-5.1); Alkaline Phosphatase 68 U/L (38-126); Anion Gap 5 mmol/L (8-16); Aspartate Amino Transferase 90 U/L (17-59); Bilirubin,Total 0.7 mg/dL (0.2-1.3); Blood Urea Nitrogen 19 mg/dL (9-20); Calcium 8.7 mg/dL (8.4-10.2); Carbon Dioxide 29 mmol/L (22-30); Chloride 108 mmol/L (98-107); Estimated CRCL calculation 63 ml/min; Estimated Glomerular Filt Rate > 60; Glucose 105 mg/dL (65-110); Potassium 3.5 mmol/L (3.4-5.0); Sodium 142 mmol/L (137-145)
--- NOTE | 2022-11-14 15:19 | PC.NURSE ---
crisis here to evaluate patient
[2022-11-14 15:29] LABS: SARS-CoV-2 RNA PCR Negative (Negative)
--- NOTE | 2022-11-14 15:42 | PC.NURSE ---
crisis states patient will need to be placed. Dr Wolf notified. Ativan seems to have helped with mood and patient is talkative at this time. Dr. Wolf gave orders for ativan iv q6h prn
[2022-11-14 16:00] VITALS: BP 130/95; PULSE 73; RESP 18; TEMP 36.5; O2SAT 100
--- NOTE | 2022-11-14 16:25 | PC.NURSE ---
Karly here to see patient and is talking with Crisis
--- NOTE | 2022-11-14 17:56 | PC.NURSE ---
[facility] in [place] called and stated they have no beds at this time.
--- NOTE | 2022-11-14 18:45 | PC.NURSE ---
Denia called [phone]. Told that they are at adult capacity but have several discharges Tuesday morning and to call back at 0900.
--- NOTE | 2022-11-14 23:50 | PC.NURSE ---
11/14/22 2248 received call from [facility] [place]. Patient has been accepted by Dr. Racquel Betancourt; however, patient can't arrive until 11/15/22.
[2022-11-15 01:30] VITALS: BP 140/97; PULSE 57; RESP 12; TEMP 36.6; O2SAT 100
[2022-11-15 08:00] VITALS: BP 147/97; PULSE 90; RESP 16; TEMP 36.8; O2SAT 100
[2022-11-15 08:43] VITALS: O2SAT 98
[2022-11-15] MEDS: ENOXAPARIN 40 MG/0.4 ML SYRINGE SUB-Q (08:48)
[2022-11-15] MEDS: TAMSULOSIN HCL 0.4 MG CAPSULE PO (08:48)
--- NOTE | 2022-11-15 10:07 | PM.DS ---
DS: Admitting Diagnosis Discharge Date 11/15/22 Admitting Diagnosis unresponsive DS: Discharge Diagnosis Discharge Diagnosis (1) Overdose: Code(s): T50.901A - Poisoning by unspecified drugs, medicaments and biological substances, accidental (unintentional), initial encounter Status: Acute Assessment and Plan: 11/11: Patient presented after being found unresponsive in his car. According the patient went to his car at 8:00 a.m. in the morning and was found unresponsive at this stating will at 5:00 p.m. that is when the EMS was called and was brought to the ED with [facility]. In the ER patient was unresponsive and would wake up to deep sternal rub was protecting his airways. Thought to have taken Seroquel, Lexapro, Depakote as the found empty bottles of his medications. Poison control was notified, recommended supportive care, IV fluids, serial EKGs to monitor QTC. EKGs noted, normal QTC until this morning. Patient endorsed being suicidal. 11/12: much more alert, still quite somnolent. will need crisis eval and psych placement 11/13: improving, increase po intake, pull piedra, d/c tele, plan to medically clear for crisis eval later today 11/14: disposition pending crisis eval, will need psych placement for safety, ativan as needed, consider restarting psych meds soon (2) Suicidal behavior: Code(s): R45.89 - Other symptoms and signs involving emotional state Status: Acute Assessment and Plan: Patient did agree to being suicidal upon questioning -patient already on suicide precautions -bedside sitter (3) Altered mental status: Code(s): R41.82 - Altered mental status, unspecified Status: Acute Assessment and Plan: appears to be resolving, still quite slowed, could be catatonia? (4) Bipolar disorder: Code(s): F31.9 - Bipolar disorder, unspecified Status: Acute Assessment and Plan: Patient on Depakote, Seroquel and Lexapro at home, will continue to hold all these medications as he has overdosed on them (5) Rhabdomyolysis: Code(s): M62.82 - Rhabdomyolysis Status: Acute Assessment and Plan: Patient was in the car from 8:00 a.m. to around 5 p.m. on the day of admission -CK levels are elevated -received adequate amount of IV fluids 11/13: d/c IVF, CK levels normalizing, monitor 11/14: Ck pending Plan DVT prophylaxis: Lovenox Stress ulcer prophylaxis: Not indicated Nutrition: regular diet Code Status: Full code DS: Summary Hospital Course Hospital Course: 6-year-old male with history of bipolar disorder off medications with history of suicide attempt is presenting with intentional overdose of his medications. He was found unresponsive. Poison Control was consulted and the patient was admitted to the ICU with telemetry, monitoring, one-to-one sitter and suicide precautions. All symptoms eventually resolved. Patient was extremely depressed and anxious and on stable for discharge. Crisis team evaluated and recommended inpatient psychiatric admission. Please see above and med rec for details. Patient was discharged to a psychiatric facility. Time Spent with Patient Time attestation: Total time spent providing and/or coordinating discharge services: Exam Narrative: General: No acute distress, alert and oriented per baseline HEENT: Atraumatic, normocephalic, mucous membranes moist CV: Regular rate and rhythm, S1, S2 Lungs: Clear to auscultation bilaterally, no rales or crackles noted, no wheezes, good air entry Abdomen: Soft, nontender, nondistended Extremities: Normal to inspection Skin: No rashes noted, no lesions or wounds seen Psych: Euthymic, normal affect DS: Data Data Completed and Pending Labs on day of discharge: Labs from last 24 hours 11/14/22 11/14/22 14:41 10:12 WBC 7.0 RBC 4.60 Hgb 14.7 Hct 43.8 MCV 95.2 MCH 32.0 MCHC 33.6 RDW 12.2 Plt Count
== END 2022-11-15 13:39 | disposition other institution (70) | DRG 918 ==
LOC: ANHED 18:18 → ANHICU 20:44
PROVIDERS: Internal Medicine; Physician Assistant; Admitting Provider Internal Medicine; Emergency Provider Nurse Practitioner Family; Visit Provider Student in an Organized Health Care Education/Training Program
DX: T43.592A Poisoning by other antipsychotics and neuroleptics, intentional self-harm, initial encounter (principal); M62.82 Rhabdomyolysis; R64 Cachexia; T43.222A Poisoning by selective serotonin reuptake inhibitors, intentional self-harm, initial encounter; T42.6X2A Poisoning by other antiepileptic and sedative-hypnotic drugs, intentional self-harm, initial encounter; R45.89 Other symptoms and signs involving emotional state; F31.9 Bipolar disorder, unspecified; F41.9 Anxiety disorder, unspecified; Z68.20 Body mass index [BMI] 20.0-20.9, adult; Z20.822 Contact with and (suspected) exposure to COVID-19
CPT/HCPCS: 36415; 36600; 70450; 71045; 80053; 80164; 80307; 81001; 82140; 82550; 82805; 82948; 83605; 83735; 84100; 85025; 85027; 85610; 85730; 87635; 93005; 96361; 96374; 99285; A9270; J1650; J2060; J2310; J7030

== ENCOUNTER 2022-12-03 08:56 | Emergency (ER) | payer BC, SELFPAY ==
[2022-12-03] VITALS (28 sets, daily range): BP systolic 76–174; BP diastolic 49–89; PULSE 67–78; RESP 14–18; TEMP 36.4–36.8; O2SAT 98–100
--- NOTE | 2022-12-03 09:15 | ECG_ITS ---
Measurements Intervals [place] Rate: 85 P: 65 [place]: 131 QRS: 69 QRSD: 133 T: 48 QT: 368 QTc: 438 Interpretive Statements SINUS RHYTHM RIGHT BUNDLE BRANCH BLOCK [120+ ms QRS DURATION, UPRIGHT V1, 40+ ms S IN I/aVL/V4/V5/V6] ABNORMAL ECG COMPARED TO ECG 11/12/2022 05:27:45 NO SIGNIFICANT CHANGES Electronically Signed On 12-03-2022 13:08:19 CDT by Rafa Bryson M.D.
[2022-12-03] MEDS: HALOPERIDOL LACTATE 5 MG/ML VIAL 2.5 MG IM (09:22)
[2022-12-03] MEDS: LORazepam INJ (*CRX) 2 MG/ML VIAL 1 MG IM (09:23)
--- NOTE | 2022-12-03 09:29 | ED.GENADULT ---
HPI - General Adult General Chief complaint: Psychiatric Symptoms <Blas Vela MD - Last Filed: 12/04/22 16:35> Stated complaint: psych <Blas Vela MD - Last Filed: 12/04/22 16:35> Time Seen by Provider: 12/03/22 09:01 <Blas Vela MD - Last Filed: 12/04/22 16:35> History of Present Illness HPI narrative: 62-year-old male with history of bipolar disorder and recent psychiatric issues presented the ED for evaluation. [facility] and has not been taking his medications. states that the patient has been more agitated and stating that there is no food in the house although there is food in the house. Upon arrival to the ED patient is anxious and appears agitated. initially brought the patient to urgent care for evaluation and he attempted to exit the moving vehicle. Patient was then transported to the ED by ambulance. <Blas Vela MD - Last Filed: 12/04/22 16:35> Related Data Home medications: Home Medications Medication Instructions Recorded Confirmed divalproex 500 mg tablet,delayed 500 mg PO HS 11/11/22 11/11/22 release ergocalciferol (vitamin D2) 1,250 1,250 unit PO WEEKLY 11/11/22 11/11/22 mcg (50,000 unit) capsule escitalopram oxalate 20 mg tablet 20 mg PO QAM 11/11/22 11/11/22 quetiapine 100 mg tablet 100 mg PO HS 11/11/22 11/11/22 <Blas Vela MD - Last Filed: 12/04/22 16:35> Allergies/adverse reactions: Allergies Allergy/AdvReac Type Severity Reaction Status Date / Time No Known Allergies Allergy Verified 11/11/22 18:20 <Blas Vela MD - Last Filed: 12/04/22 16:35> Review of Systems Review of Systems: All systems reviewed & are unremarkable except as noted in HPI and below <Blas Vela MD - Last Filed: 12/04/22 16:35> PMFSH Past Medical History Medical History: Medical History (Updated 12/03/22 @ 18:43 by Blas Vela MD) Bipolar disorder <Blas Vela MD - Last Filed: 08/05/23 16:35> Family History Family History: Family History (Updated 11/11/22 @ 23:26 by Rosanne Jean RN) Mother Hypertension Father Crohn disease Sibling Patient's brother is in good health Patient's sister is in good health <Blas Vela MD - Last Filed: 12/04/22 16:35> Social History Social History: Social History Smoking status: Never smoker Alcohol intake: never Substance use: never Spiritual care concerns: No <Blas Vela MD - Last Filed: 12/04/22 16:35> Exam Narrative: APPEARANCE: Agitated and anxious HEAD: normocephalic, atraumatic. EYES: PERRLA/EOMI, conjunctivae clear. NOSE: Normal no drainage EARS:TMS clear with good light reflex. THROAT: Pharynx clear, no exudate. NECK: Supple. No adenopathy, no masses. RESPIRATORY: Airway patent, respirations nonlabored. Clear to auscultation bilaterally, no rales, rhonchi, wheezing. CARDIOVASCULAR: Regular rate and rhythm without murmurs rubs or gallops. ABDOMINAL: Soft, nontender, nondistended, normal bowel sounds MUSCULOSKELETAL: Moves all extremities. Strength/ROM intact, No edema, No calf tenderness. NEURO: Alert. Cranial nerves II through XII intact. Grossly intact SKIN: Warm, dry. Normal Color <Blas Vela MD - Last Filed: 12/04/22 16:35> Course Course Emergency Course: 60-year-old male presented ED for evaluation of increased agitation and anxiety. Upon arrival to the ED patient was treated with IM Haldol and IM Ativan for agitation. Patient had a negative work-up. Patient was afebrile with normal acidosis and a stable hemoglobin. No significant abnormalities on the patient's CMP. UA showed no evidence of urinary tract infection. Negative UDS and patient was negative for influenza COVID and RSV. Patient did have some low blood pressure but this did improve after he is more alert and was treated with 1
[2022-12-03 10:22] LABS: Glucose Point of Care 100 mg/dl (65-105)
[2022-12-03 10:25] LABS: Basophils Percent Auto 0.4 % (0.2-1.2); Eosinophils Percent Auto 0.2 % (0-4.4); Hematocrit 34.4 % (42.0-52.0); Hemoglobin 11.9 g/dL (14.0-18.0); Immature Granulocyte Absolute 0.02 K/mm3 (0.00-0.031); Immature Granulocyte Percent A 0.4 % (0-0.5); Lymphocytes Absolute Auto 0.76 K/mm3 (0.9-3.2); Lymphocytes Percent Auto 13.6 % (18.3-44.2); Mean Corpuscular HGB Conc 34.6 g/dl (32-36); Mean Corpuscular Hemoglobin 32.4 pg (26-34); Mean Corpuscular Volume 93.7 fl (80-100); Mean Platelet Volume 9.5 fl (7.4-10.4); Monocytes Absolute Auto 0.6 K/mm3 (0.1-0.6); Monocytes Percent Auto 10.1 % (2.6-8.5); Neutrophils Absolute Auto 4.2 K/mm3 (1.3-6.7); Neutrophils Percent Auto 75.3 % (45.5-73.1); Platelet Count Result 221 k/mm3 (150-375); Red Blood Count 3.67 M/mm3 (4.6-6.20); Red Cell Distribution Width 12.8 % (11.5-14.5); White Blood Count 5.6 K/mm3 (4.5-10.0)
--- NOTE | 2022-12-03 10:38 | PC.NURSE ---
Karly went home and took pt's wallet, phone and 2 sets of keys
[2022-12-03 10:41] LABS: Acetaminophen < 10 ug/mL (10-30); Ethanol < 10 mg/dL (<10); Salicylate < 1.0 mg/dL (2-20)
[2022-12-03 10:42] LABS: Alanine Aminotransferase 38 U/L (6-50); Albumin Level 3.9 g/dL (3.5-5.1); Alkaline Phosphatase 49 U/L (38-126); Anion Gap 6 mmol/L (8-16); Aspartate Amino Transferase 29 U/L (17-59); Bilirubin,Total 0.2 mg/dL (0.2-1.3); Blood Urea Nitrogen 23 mg/dL (9-20); Calcium 8.6 mg/dL (8.4-10.2); Carbon Dioxide 25 mmol/L (22-30); Chloride 103 mmol/L (98-107); Estimated Glomerular Filt Rate > 60; Glucose 94 mg/dL (65-110); Potassium 4.2 mmol/L (3.4-5.0); Sodium 134 mmol/L (137-145)
[2022-12-03 11:01] LABS: Influenza A QL RT-PCR Negative (Negative); Influenza B QL RT-PCR Negative (Negative); RSV RNA, RT-PCR Negative (Negative); SARS-CoV-2 RNA PCR Negative (Negative)
[2022-12-03 13:16] LABS: Appearance Urine Clear (Clear); Bilirubin Urine Negative (Negative); Blood Urine Negative (Negative); Color Urine Yellow (Yellow); Glucose Urine UA Negative (Negative); Ketones Urine Negative (Negative); Leukocyte Esterase Ur Negative LEU/UL (Negative); Nitrate Urine Negative (Negative); Protein Urine Negative (Negative); Specific Grav Ur 1.008 (1.001-1.035); Urobilinogen Urine 0.2 mg/dL (<2.0)
[2022-12-03 13:20] LABS: Amphetamine Screen Urine Negative (Negative); Barbiturate Screen Urine Negative (Negative); Benzodiazepines Screen Urine Negative (Negative); Cannabinoid Screen Urine Negative (Negative); Cocaine Screen Urine Negative (Negative); Methadone Screen Urine Negative (Negative); Opiate Screen Urine Negative (Negative); Phencyclidine Screen Urine Negative (Negative)
[2022-12-03 13:23] LABS: Add Urine Microscopic? NO
[2022-12-03] MEDS: SODIUM CHLORIDE 0.9% IV 1,000 ML 999 ML IV CONT (16:40)
== END 2022-12-03 21:07 | disposition home or self-care (01) ==
PROVIDERS: Emergency Medicine; Emergency Provider Emergency Medicine; PCP Internal Medicine
DX: R41.82 Altered mental status, unspecified (principal); F31.9 Bipolar disorder, unspecified; Z20.822 Contact with and (suspected) exposure to COVID-19
CPT/HCPCS: 36415; 80053; 80307; 81003; 82948; 84443; 85025; 87637; 93005; 96360; 96372; 99284; J1630; J2060; J7030

== ENCOUNTER 2023-01-11 19:28 | Emergency (ER) | payer BC, SELFPAY ==
--- NOTE | ~2023-01-11 | XR_ITS ---
Clinical Indication: Weakness AP and lateral views of the chest: Comparison: 11/12/2022 Findings: Small calcified granulomas are present. The lungs are otherwise clear, without evidence of focal consolidation or pleural effusion. Cardiomediastinal silhouette is within normal limits. Bones and soft tissues are unremarkable. Impression: No acute abnormality. Reviewed, dictated and finalized at location . Impression: No acute abnormality.
[2023-01-11 19:30] VITALS: BP 142/94; PULSE 103; RESP 14; TEMP 36.8; O2SAT 99
--- NOTE | 2023-01-12 | ECG_ITS ---
Measurements Intervals [place] Rate: 73 P: 74 OR: 120 QRS: 86 QRSD: 151 T: 62 QT: 414 QTc: 459 Interpretive Statements SINUS RHYTHM RIGHT BUNDLE BRANCH BLOCK BASELINE ARTIFACT- I, III, AVR, AVL, AVF, V1-V2 ABNORMAL ECG COMPARED TO ECG 12/03/2022 10:07:32 NO SIGNIFICANT CHANGES Electronically Signed On 01-12-2023 6:25:35 CDT by Ezio Hayes D.O.
[2023-01-12 01:25] LABS: Basophils Percent Auto 0.8 % (0.2-1.2); Eosinophils Percent Auto 0.6 % (0-4.4); Hematocrit 39.2 % (42.0-52.0); Hemoglobin 13.5 g/dL (14.0-18.0); Lymphocytes Absolute Auto 1.51 K/mm3 (0.9-3.2); Lymphocytes Percent Auto 30.4 % (18.3-44.2); Mean Corpuscular HGB Conc 34.4 g/dl (32-36); Mean Corpuscular Hemoglobin 32.3 pg (26-34); Mean Corpuscular Volume 93.8 fl (80-100); Mean Platelet Volume 10.2 fl (7.4-10.4); Monocytes Absolute Auto 0.5 K/mm3 (0.1-0.6); Monocytes Percent Auto 9.9 % (2.6-8.5); Neutrophils Absolute Auto 2.9 K/mm3 (1.3-6.7); Neutrophils Percent Auto 58.3 % (45.5-73.1); Platelet Count Result 192 k/mm3 (150-375); Red Blood Count 4.18 M/mm3 (4.6-6.20); Red Cell Distribution Width 12.3 % (11.5-14.5)
[2023-01-12 01:36] LABS: Lactic Acid Reflex 1.3 mmol/L (0.7-2.0); Magnesium 2.3 mg/dL (1.6-2.3)
[2023-01-12 01:37] LABS: Alanine Aminotransferase 38 U/L (6-50); Albumin Level 4.1 g/dL (3.5-5.1); Alkaline Phosphatase 47 U/L (38-126); Anion Gap 8 mmol/L (8-16); Aspartate Amino Transferase 39 U/L (17-59); Bilirubin,Total 0.6 mg/dL (0.2-1.3); Blood Urea Nitrogen 17 mg/dL (9-20); Calcium 9.3 mg/dL (8.4-10.2); Carbon Dioxide 28 mmol/L (22-30); Chloride 102 mmol/L (98-107); Estimated CRCL calculation 54 ml/min; Estimated Glomerular Filt Rate > 60; Glucose 98 mg/dL (65-110); Potassium 3.9 mmol/L (3.4-5.0); Sodium 138 mmol/L (137-145)
[2023-01-12 01:43] LABS: Prothrombin Time 14.1 Seconds (11.1-14.7)
[2023-01-12 01:46] LABS: Partial Thromboplastin Time 31.6 SECONDS (22.3-36.8)
[2023-01-12 01:48] LABS: NT Pro B Type Natriuretic Pept 25 pg/mL (19.9-100); Troponin I < 0.012 ng/mL (0.000-0.034)
[2023-01-12 03:16] LABS: Appearance Urine Clear (Clear); Bilirubin Urine Negative (Negative); Blood Urine Negative (Negative); Color Urine Yellow (Yellow); Glucose Urine UA Negative (Negative); Ketones Urine Negative (Negative); Leukocyte Esterase Ur Negative LEU/UL (Negative); Nitrate Urine Negative (Negative); Protein Urine Negative (Negative); Specific Grav Ur 1.009 (1.001-1.035); pH Urine 7.5 (5.0-9.0)
[2023-01-12 03:18] LABS: Add Urine Microscopic? NO
--- NOTE | 2023-01-12 03:28 | ED.GENADULT ---
HPI - General Adult General Chief complaint: Weakness Stated complaint: leg swelling, unsteady gait Time Seen by Provider: 01/12/23 00:31 History of Present Illness HPI narrative: Patient 62-year-old gentleman who presents emerged department with chief complaint of generalized weakness and swelling of the lower extremities. Patient was recently admitted psychiatrically to [place] and patient has not really been taking his medications and the family is noticed that his ankles have been slightly swollen. They reportedly has been less active and more shaky than normal the family reports no shortness of breath no chest pain patient denies suicidal or homicidal ideations has not been agitated at home. Related Data Home Medications Medication Instructions Recorded Confirmed divalproex 500 mg tablet,delayed 500 mg PO HS 11/11/22 11/11/22 release ergocalciferol (vitamin D2) 1,250 1,250 unit PO WEEKLY 11/11/22 11/11/22 mcg (50,000 unit) capsule escitalopram oxalate 20 mg tablet 20 mg PO QAM 11/11/22 11/11/22 quetiapine 100 mg tablet 100 mg PO HS 11/11/22 11/11/22 Allergies Allergy/AdvReac Type Severity Reaction Status Date / Time No Known Allergies Allergy Verified 01/12/23 00:00 Review of Systems Review of Systems: A 10 system review of systems was completed on the patient and is negative except for what is stated in the HPI. Nursing and ancillary documentation was reviewed. [facility]LY [facility] Past Medical History Medical History Bipolar disorder Family History Family History Mother Hypertension Father Crohn disease Sibling Patient's brother is in good health Patient's sister is in good health Social History Social History Smoking status: Never smoker Alcohol intake: never Substance use: never Spiritual care concerns: No Exam Narrative: GENERAL: Well-appearing, thin, and in no acute distress. HEAD: Normocephalic, atraumatic. EYES: PERRLA and EOMI. ENT: Nares clear, no rhinorrhea or epistaxis. Dry mucous membranes. NECK: Supple. CHEST: Clear to auscultation. No respiratory distress. HEART: Regular rate and rhythm. No murmur heard. Normal peripheral pulses. ABDOMEN: Soft, nontender, nondistended, normal active bowel sounds. EXTREMITIES: Normal range of motion. No edema. SKIN: Warm, dry, no rash. NEURO: No focal deficits. Alert and oriented x3. PSYCH: Normal mood and affect. Course Vital Signs Vital signs: Vital Signs Temperature 36.8 C 01/11/23 19:30 Pulse Rate 103 H 01/11/23 19:30 Respiratory Rate 14 01/11/23 19:30 Blood Pressure 142/94 H 01/11/23 19:30 Pulse Oximetry 99 01/11/23 19:30 Oxygen Delivery Room Air 01/11/23 19:30 Temperature 36.8 C 01/11/23 19:30 Pulse Rate 103 H 01/11/23 19:30 Respiratory Rate 14 01/11/23 19:30 Blood Pressure 142/94 H 01/11/23 19:30 Pulse Oximetry 99 01/11/23 19:30 Oxygen Delivery Room Air 01/11/23 19:30 Medical Decision Making [facility] Narrative Medical decision making narrative: Differential diagnosis includes CHF, malnourishment, anemia, renal failure Laboratory studies were obtained on the patient which showed a hemoglobin of 13.5 chemistry showed a BUN of 17 and a creatinine of 0.9 albumin was 4.1 BNP was 25 troponin was less than 0.012 urinalysis showed normal specific gravity with 1.009 and no evidence of UTI. Chest x-ray showed no focal infiltrate and no evidence of pulmonary edema The family was offered admission versus outpatient follow-up the family reports that they have an appointment tomorrow with her psychiatrist they have been attempting to get into for some time patient family was instructed if symptoms worsen they should return to the emergency department for reevaluation Vital Signs Vital Signs: Vit
== END 2023-01-12 03:53 | disposition home or self-care (01) ==
PROVIDERS: Emergency Provider Emergency Medicine; PCP Internal Medicine
DX: R53.1 Weakness (principal); R60.0 Localized edema; F31.9 Bipolar disorder, unspecified; I45.10 Unspecified right bundle-branch block
CPT/HCPCS: 36415; 71046; 80053; 81003; 83605; 83735; 83880; 84484; 85025; 85610; 85730; 93005; 99284

== ENCOUNTER 2023-11-10 18:45 | Inpatient (IN) | payer BC, SELFPAY ==
[2023-11-10] VITALS (14 sets, daily range): BP systolic 86–95; BP diastolic 57–73; PULSE 85–135; RESP 14–51; TEMP 36.9–39.3; O2SAT 93–100
--- NOTE | ~2023-11-10 | XR_ITS ---
EXAMINATION: XR chest 2V DATE: 11/10/2023 19:32 INDICATION: Altered mental status. TECHNIQUE: Frontal and lateral views of the chest were obtained. COMPARISON: Chest 2 views 01/12/2023 FINDINGS: There is stable mild scarring at the lung apices. Calcified pulmonary nodules and calcified hilar lymph nodes are consistent with old granulomatous disease. No pleural effusion or pneumothorax . The heart size is normal. IMPRESSION: 1. No acute cardiopulmonary disease. Reviewed, dictated and finalized at location E.
--- NOTE | ~2023-11-10 | CT_ITS ---
Non-contrast Head CT History: Status post fall, expressive aphasia COMPARISON: 11/11/2022 Technique: Axial non-contrast imaging of the brain was performed. Dose reduction technique was used on this scan by utilizing automated exposure control and iterative reconstruction technique. The dose -length product (DLP) was 681.00 mGy-cm. Findings: There is no evidence of intracranial hemorrhage, mass lesion, or acute infarct. Brain par enchyma appears normal. The ventricles and subarachnoid spaces are normal in size. The calvarium ap pears normal. The visualized paranasal sinuses and mastoid air cells are clear. Impression: No significant abnormality seen. Reviewed, dictated and finalized at location . Impression: No significant abnormality seen.
--- NOTE | 2023-11-10 19:15 | ECG_ITS ---
Test Date: 2023-11-10 19:17:12 Measurements Intervals [place] Rate: 118 P: 53 ND: 134 QRS: 74 QRSD: 142 T: 36 QT: 348 QTc: 488 Interpretive Statements SINUS TACHYCARDIA RIGHT BUNDLE BRANCH BLOCK BASELINE WANDER- AVL, AVF, V5-V6 ABNORMAL ECG No previous ECG available for comparison Electronically Signed On 11-10-2023 20:30:05 CDT by Ezio Hayes D.O.
[2023-11-10] MEDS: ACETAMINOPHEN 500 MG TABLET 1000 MG PO (19:58)
[2023-11-10 20:00] LABS: Basophils Absolute Auto 0.1 K/mm3 (0.0-0.1); Basophils Percent Auto 0.3 % (0.2-1.2); Eosinophils Absolute Auto 0.4 K/mm3 (0-0.3); Eosinophils Percent Auto 2.2 % (0-4.4); Hematocrit 38.4 % (42.0-52.0); Immature Granulocyte Absolute 0.26 K/mm3 (0.00-0.031); Immature Granulocyte Percent A 1.5 % (0-0.5); Lymphocytes Absolute Auto 0.94 K/mm3 (0.9-3.2); Lymphocytes Percent Auto 5.6 % (18.3-44.2); Mean Corpuscular HGB Conc 33.9 g/dl (32-36); Mean Corpuscular Hemoglobin 31.9 pg (26-34); Mean Corpuscular Volume 94.3 fl (80-100); Mean Platelet Volume 10.1 fl (7.4-10.4); Neutrophils Absolute Auto 14.2 K/mm3 (1.3-6.7); Neutrophils Percent Auto 84.4 % (45.5-73.1); Platelet Count Result 143 k/mm3 (150-375); Red Blood Count 4.07 M/mm3 (4.6-6.20); Red Cell Distribution Width 12.1 % (11.5-14.5); White Blood Count 16.8 K/mm3 (4.5-10.0)
[2023-11-10 20:11] LABS: INR 1.2; Prothrombin Time 15.3 Seconds (11.1-14.7)
[2023-11-10 20:23] LABS: Alanine Aminotransferase 25 U/L (6-50); Albumin Level 4.2 g/dL (3.5-5.1); Alkaline Phosphatase 62 U/L (38-126); Anion Gap 21 mmol/L (4-12); Aspartate Amino Transferase 33 U/L (17-59); Bilirubin,Total 0.4 mg/dL (0.2-1.3); Blood Urea Nitrogen 18 mg/dL (9-20); CRP < 0.5 mg/dL (<1.0); Calcium 8.9 mg/dL (8.4-10.2); Carbon Dioxide 16 mmol/L (22-30); Chloride 111 mmol/L (98-107); Estimated Glomerular Filt Rate 30; Glucose 121 mg/dL (65-110); Potassium 3.8 mmol/L (3.4-5.0); Sodium 148 mmol/L (137-145)
[2023-11-10 20:36] LABS: Influenza A QL RT-PCR Negative (Negative); Influenza B QL RT-PCR Negative (Negative); RSV RNA, RT-PCR Negative (Negative); SARS-CoV-2 RNA PCR Negative (Negative)
[2023-11-10] MEDS: SODIUM CHLORIDE 0.9% IV 1,000 ML 999 ML IV CONT (20:41)
[2023-11-10 21:20] LABS: Appearance Urine Clear (Clear); Bacteria Urine None Seen /hpf; Bilirubin Urine Negative (Negative); Blood Urine 2+ (Negative); Color Urine Yellow (Yellow); Glucose Urine UA Negative (Negative); Hyaline Casts Urine Present /lpf; Ketones Urine Negative (Negative); Leukocyte Esterase Ur Negative LEU/UL (Negative); Need Manual Microscopic Need Manual; Nitrate Urine Negative (Negative); Protein Urine 1+ mg/dL (Negative); RBC Urine 0-2 /hpf (0-2); Specific Grav Ur 1.013 (1.001-1.035); Squamous Epithelial Cell Urine None Seen /hpf (Few); WBC Urine 0-5 /hpf (0-3); pH Urine 6.5 (5.0-9.0)
[2023-11-10 21:34] LABS: Calcium Oxalate Crystals Urine Present /hpf
[2023-11-10 21:35] LABS: Add Urine Microscopic? YES
--- NOTE | 2023-11-10 22:00 | ED.GENADULT ---
HPI - General Adult General Chief complaint: Altered Mental Status Stated complaint: AMS, possible seizure Time Seen by Provider: 11/10/23 19:03 History of Present Illness HPI narrative: patient is a 63-year-old male who presents ER with altered mental status. Found outside in his backyard. [place] around 3:00 p.m.. reports he is in normal state health this morning. No recent urinary symptoms or cough. Patient found to be febrile here. Patient gets ECT [facility]. He has been doing much better since receiving these treatments. Patient is currently orient x1. Slow to respond questions. Related Data Home Medications Medication Instructions Recorded Confirmed escitalopram oxalate 20 mg tablet 20 mg PO QAM 11/11/22 03/23/23 duloxetine 30 mg capsule,delayed 30 mg PO QAM 02/16/23 03/23/23 release duloxetine 60 mg capsule,delayed 60 mg PO DAILY 02/16/23 03/23/23 release paliperidone 6 mg tablet,extended 6 mg PO DAILY 02/16/23 03/23/23 release 24 hr trazodone 50 mg tablet 25 mg PO QHS 02/16/23 03/23/23 benztropine 0.5 mg BID 11/10/23 11/10/23 quetiapine 600 mg ACHS 11/10/23 11/10/23 Allergies Allergy/AdvReac Type Severity Reaction Status Date / Time No Known Allergies Allergy Verified 11/10/23 19:10 Review of Systems Review of Systems: ROS unobtainable: Yes unobtainable due to medical condition [facility] Past Medical History Medical History Bipolar disorder Family History Family History Mother Hypertension Father Crohn disease Sibling Patient's brother is in good health Patient's sister is in good health Social History Social History (Updated 02/16/23 @ 10:00 by Wendy Zhang CMA) Smoking status: Never smoker Alcohol intake: never Substance use: never Lack of Transportation: No Lack of Food: Never True Current Housing: I Have Housing Concerned About Future Housing: No Difficulty Paying Gas/Electric Bills: No Difficulty Paying for Meds: No Currently Unemployed: No Education: Bachelor's Degree Difficulty w/ Childcare or Family Care: No Spiritual care concerns: No Exam Narrative: GENERAL: Chronically ill-appearing, well-nourished, and in no acute distress. HEAD: Normocephalic, atraumatic. EYES: PERRL and EOMI. ENT: Mucous membranes moist. CHEST: Clear to auscultation. No respiratory distress. HEART: tachycardic and regular.Normal peripheral pulses. ABDOMEN: Soft, nontender, nondistended. EXTREMITIES: Normal range of motion. No edema. SKIN: Warm, dry, no rash. NEURO: Awake alert, oriented x1. no facial asymmetry. Moves all extremities well. Course Course Emergency Course: 2199: Insert patient resting comfortably. He has received 30 milliliter/kilogram bolus. His blood pressure is still low. He has weight orient x3. He is no longer tachycardic or febrile. Here he reports that he was mowing run around 3:00 a.m. in felt weird and fell down. He denies any infectious symptoms. It is suspected that he has been outside for 3-4 hours before being found. reports patient is chronically dehydrated and they would have to give him IV fluids before his ECT treatments and has poor intake of fluid. I suspect patient had an VANITA succumb to the heat. Will continue to hydrate. Current blood pressure 90/67 mmHg. We will start broad-spectrum antibiotics given signs of sepsis or but is more likely add that this is a heat related illness. Vital Signs Vital signs: Vital Signs Temperature 102.7 F H 11/10/23 18:48 Pulse Rate 135 H 11/10/23 18:48 Respiratory Rate 42 H 11/10/23 18:48 Blood Pressure 95/60 L 11/10/23 18:48 Pulse Oximetry 95 11/10/23 18:48 Oxygen Delivery Room Air 11/10/23 18:48 Temperature 98.5 F 11/10/23 21:08 Pulse Rate 91 11/10/23 22:08 Respiratory Rate 14 11/10/23 22:08
[2023-11-10] MEDS: LACTATED RINGERS 1,000 ML 999 ML IV CONT (22:03)
[2023-11-10] MEDS: CEFEPIME 2 GM/NS 50 ML 2 GM/50 ML BAG IVPB (22:04)
[2023-11-10 22:29] LABS: Alveolar/Arterial O2 Gradient 23.8 mmHg; Base Excess ABG -4.1 mEq/l (+/-2.0); Carboxyhemoglobin 0.3 % THb (0-2.0); Fractional Inspired Oxygen 21 %; HCO3 ABG 20.1 mEq/l (22.0-26.0); Methemoglobin ABG 0.3 %THb (0-1.5); Oxygen Content ABG 15.8 %vol (16.0-22.0); Oxygen Saturation ABG 96.5 % (95.0-100.0); Oxyhemoglobin 95.4 % THb (90.0-100.0); PO2 ABG 85.2 mmHg (80.0-100.0); PO2 FiO2 Ratio Arterial Blood 4.06 %; Total Hemoglobin 11.7 g/dL (12.0-18.0)
[2023-11-10 22:30] LABS: Modified Allen's Test Pass; Site Drawn RIGHT RADIAL
[2023-11-10] MEDS: VANCOMYCIN 1,000 MG/NS 250 ML 1,000 MG/250 ML BAG 250 MG IVPB (22:36)
--- NOTE | 2023-11-10 22:53 | PM.IMHP ---
H&P: HPI History of Present Illness Date/Time: 11/10/23 22:53 Chief Complaint: fall Narrative: This is a 63-year-old male with past medical history significant for bipolar disorder, catatonic crisis, [facility] after being treated for catatonic crisis. Patient was brought to the emergency room after he was found down in the [place]d at his house he was doing yd work history taking is limited patient with altered mental status and incoherent at the time he was found down most of the history is been collected from who is at bedside. patient can not tell exactly how it happened or remember the events, EMS was called patient arrived via ambulance. Preliminary workup was significant for a creatinine of 2.2 sodium 148 CK 6771 patient tested negative for influenza type A influenza type B COVID and RSV. EXAMINATION: XR chest 2V DATE: 11/10/2023 19:32 INDICATION: Altered mental status. TECHNIQUE: Frontal and lateral views of the chest were obtained. COMPARISON: Chest 2 views 01/12/2023 FINDINGS: There is stable mild scarring at the lung apices. Calcified pulmonary nodules and calcified hilar lymph nodes are consistent with old granulomatous disease. No pleural effusion or pneumothorax. The heart size is normal. IMPRESSION: 1. No acute cardiopulmonary disease. Review of Systems Review of Systems: ROS unobtainable: Yes unobtainable due to mental status PMFSH Past Medical History Medical History Bipolar disorder Family History Family History Mother Hypertension Father Crohn disease Sibling Patient's brother is in good health Patient's sister is in good health Social History Social History (Updated 02/16/23 @ 10:00 by Wendy Zhang CMA) Smoking status: Never smoker Alcohol intake: never Substance use: never Do You Feel Safe in your Home?: Yes Lack of Transportation: No Lack of Food: Never True Current Housing: I Have Housing Concerned About Future Housing: No Difficulty Paying Gas/Electric Bills: No Difficulty Paying for Meds: No Currently Unemployed: No Education: High School Diploma/GED Difficulty w/ Childcare or Family Care: No Spiritual care concerns: No Meds Home Medications and Allergies Home Medications Medication Instructions Recorded Confirmed Type benztropine 0.5 mg BID 11/10/23 11/10/23 History quetiapine 600 mg ACHS 11/10/23 11/10/23 History Allergies Allergy/AdvReac Type Severity Reaction Status Date / Time No Known Allergies Allergy Verified 11/10/23 19:10 Vital Signs Vital Signs - 24 hr 11/10/23 18:48 11/10/23 20:17 11/10/23 20:18 Temperature 102.7 F H Pulse Rate 135 H 101 H Respiratory Rate 42 H Blood Pressure 95/60 L Pulse Oximetry 95 94 Oxygen Delivery Room Air Room Air 11/10/23 21:08 11/10/23 20:28 11/10/23 22:08 Temperature 98.5 F 98.5 F Pulse Rate 94 91 Respiratory Rate 18 14 Blood Pressure 86/60 L 90/67 L Pulse Oximetry 98 100 Oxygen Delivery Exam Narrative: patient is laying in a stretcher Const: General: comfortable, no acute distress, well developed, alert, awake and average body habitus Nutritional Appearance: average body habitus Orientation/consciousness: patient oriented x3 Other: dry mucosa HENMT: Head: normal to inspection, normocephalic and atraumatic Ears: hearing grossly normal bilaterally Face/Nose/Sinus: normal facial exam Face and sinus: normal facial exam Eyes: General: appearance normal, both eyes and all related structures Pupils: Equal, round and reactive pupils present EOM: EOMs intact bilaterally Neck: Neck: full ROM, no lymphadenopathy and no JVD Thyroid: thyroid normal Lymphatic: no lymphadenopathy noted Resp: Effort & Inspection: normal respiratory effort and able to speak in complete
[2023-11-10 22:58] LABS: Reflex Lactic Acid Yes or No Add Lactic
[2023-11-10 23:35] LABS: MRSA (PCR) NOT DETECTED (NOT DETECTE)
[2023-11-10 23:35] LABS: Lactic Acid 1.7 mmol/L (0.7-2.0)
[2023-11-10 23:55] LABS: Creatine Kinase 6771 U/L (55-170)
[2023-11-11] VITALS (13 sets, daily range): BP systolic 91–142; BP diastolic 60–100; PULSE 69–102; RESP 16–20; TEMP 36.2–36.9; O2SAT 97–100; BMI 22.0
[2023-11-11] MEDS: SODIUM CHLORIDE 0.9% IV 1,000 ML 125 ML IV CONT
--- NOTE | 2023-11-11 00:09 | ADMGEN ---
This patient, Norris Daniels, was admitted to IMU Room 213-01. Patient/family oriented to hospital policies and general routines including ID bracelet, bed and alarms, visiting hours, pain management, procedures, bathroom and other care routines, personal items, smoking policy, room service/diet, and visiting hours. Information on how to activate the Rapid Response Team has been discussed. Patient/Family are encouraged to report perceived risks to care and to ask questions if they do not understand what they are told or what they should do.
[2023-11-11] MEDS: QUEtiapine FUMARATE XR 200 MG TAB.ER.24H 600 MG BY MOUTH ×2 (01:58→21:05)
[2023-11-11 04:38] LABS: Estimated CRCL calculation 40 ml/min; Estimated Glomerular Filt Rate 44
[2023-11-11] MEDS: DEXTROSE 5%/0.45% SOD CHL 1,000 ML 100 ML IV CONT (08:07)
[2023-11-11] MEDS: BENZTROPINE MESYLATE 0.5 MG TABLET PO ×2 (08:07→16:40)
[2023-11-11 10:14] LABS: Basophils Percent Auto 0.2 % (0.2-1.2); Eosinophils Absolute Auto 0.1 K/mm3 (0-0.3); Eosinophils Percent Auto 0.9 % (0-4.4); Hemoglobin 11.7 g/dL (14.0-18.0); Immature Granulocyte Absolute 0.06 K/mm3 (0.00-0.031); Immature Granulocyte Percent A 0.5 % (0-0.5); Lymphocytes Absolute Auto 1.95 K/mm3 (0.9-3.2); Lymphocytes Percent Auto 15.6 % (18.3-44.2); Mean Corpuscular HGB Conc 33.4 g/dl (32-36); Mean Corpuscular Volume 95.6 fl (80-100); Mean Platelet Volume 9.7 fl (7.4-10.4); Monocytes Absolute Auto 0.7 K/mm3 (0.1-0.6); Monocytes Percent Auto 5.5 % (2.6-8.5); Neutrophils Absolute Auto 9.7 K/mm3 (1.3-6.7); Neutrophils Percent Auto 77.3 % (45.5-73.1); Platelet Count Result 109 k/mm3 (150-375); Red Blood Count 3.66 M/mm3 (4.6-6.20); Red Cell Distribution Width 12.4 % (11.5-14.5); White Blood Count 12.5 K/mm3 (4.5-10.0)
[2023-11-11 10:27] LABS: Alanine Aminotransferase 32 U/L (6-50); Albumin Level 3.4 g/dL (3.5-5.1); Alkaline Phosphatase 54 U/L (38-126); Anion Gap 8 mmol/L (4-12); Aspartate Amino Transferase 195 U/L (17-59); Bilirubin,Total 0.4 mg/dL (0.2-1.3); Blood Urea Nitrogen 19 mg/dL (9-20); Carbon Dioxide 22 mmol/L (22-30); Chloride 113 mmol/L (98-107); Estimated CRCL calculation 43 ml/min; Estimated Glomerular Filt Rate 47; Glucose 98 mg/dL (65-110); Magnesium 2.6 mg/dL (1.6-2.3); Potassium 3.4 mmol/L (3.4-5.0); Sodium 143 mmol/L (137-145)
[2023-11-11 10:55] LABS: Creatine Kinase > 16000 U/L (55-170)
--- NOTE | 2023-11-11 11:28 | P.PNIM_ITS ---
Progress Note: A&P Assessment and Plan (1) Heat exposure: Code(s): T67.9XXA - Effect of heat and light, unspecified, initial encounter Status: Acute Assessment and Plan: * Presented to the ED after being found by his on the ground outside * He stated that he fell around 1500 yesterday afternoon while trying to mow the grass * CK was 6226 on admission and is currently >14667 * IV fluids started in the Ed * Continue and change IV fluids to LR at 250 ml/hr * Continue to trend labs including CK * Encourage PO intake (2) Rhabdomyolysis: Code(s): M62.82 - Rhabdomyolysis Status: Acute Assessment and Plan: * CK on admission was 6226 * Ck currently at >43254 * Change D51/2NS to LR at 250 ml/hr * Repeat labs in the afternoon * Creatinine was elevated at 2.20 on admission, currently at 1.50 * Trend labs * Adjust therapy as indicated (3) Severe sepsis: Code(s): A41.9 - Sepsis, unspecified organism; R65.20 - Severe sepsis without septic shock Status: Acute Assessment and Plan: * Patient meets SIRS criteria with temperature of 102.7?, heart rate 130s, tachypneic in the 50s, blood pressure 86/60 at time of arrival * White blood cell count 16.8, lactic acid 12, creatinine 2.20 * No source of infection noted * Blood cultures obtained * Continue cefepime and vancomycin until blood cultures negative times 24-48 hours * Chest x-ray shows no acute abnormality * UA does not appear infectious * Trend labs (4) VANITA (acute kidney injury): Code(s): N17.9 - Acute kidney failure, unspecified Status: Acute Assessment and Plan: * Creatinine elevated at 2.20 * Current creatinine is 1.50 * Baseline creatinine is 0.90 * Most likely related to severe dehydration * Trend labs * Continue fluid resuscitation * Avoid nephrotoxic medication * Renal adjust medications as indicated (5) Fall: Code(s): W19.XXXA - Unspecified fall, initial encounter Status: Acute Assessment and Plan: * Presented after a fall while mowing the lawn * Unknown etiology * Head ct ordered * PT/OT ordered * Neurocheck Q4H (6) Bipolar disorder: Qualifiers: Active/Remission status: currently active Current bipolar episode type: depressed Current episode severity: severe Psychotic features: with psychotic features Qualified Code(s): F31.5 - Bipolar disorder, current episode depressed, severe, with psychotic features Code(s): F31.9 - Bipolar disorder, unspecified Status: Acute Assessment and Plan: * continue home meds * Stable (7) Acute metabolic encephalopathy: Code(s): G93.41 - Metabolic encephalopathy Status: Acute Assessment and Plan: * Mental status is a bit different from supposed baseline * Head ct ordered * Neuro checks * Most likely related to acute medical condition * Await for results of head ct. Time Spent With Patient Time: 53 minutes Time with patient: Greater than 35 minutes Subjective Date/time seen: 11/11/23 11:15 Interval history: 11/10/23 22:53 This is a 63-year-old male with past medical history significant for bipolar disorder, catatonic crisis, patient [facility] after being treated for catatonic crisis. Patient was brought to the emergency room a
--- NOTE | 2023-11-11 11:28 | PM.IMPN ---
Progress Note: A&P Assessment and Plan (1) Heat exposure: Code(s): T67.9XXA - Effect of heat and light, unspecified, initial encounter Status: Acute Assessment and Plan: Presented to the ED after being found by his on the ground outside He stated that he fell around 1500 yesterday afternoon while trying to mow the grass CK was 6226 on admission and is currently >51497 IV fluids started in the Ed Continue and change IV fluids to LR at 250 ml/hr Continue to trend labs including CK Encourage PO intake (2) Rhabdomyolysis: Code(s): M62.82 - Rhabdomyolysis Status: Acute Assessment and Plan: CK on admission was 6226 Ck currently at >36338 Change D51/2NS to LR at 250 ml/hr Repeat labs in the afternoon Creatinine was elevated at 2.20 on admission, currently at 1.50 Trend labs Adjust therapy as indicated (3) Severe sepsis: Code(s): A41.9 - Sepsis, unspecified organism; R65.20 - Severe sepsis without septic shock Status: Acute Assessment and Plan: Patient meets SIRS criteria with temperature of 102.7?, heart rate 130s, tachypneic in the 50s, blood pressure 86/60 at time of arrival White blood cell count 16.8, lactic acid 12, creatinine 2.20 No source of infection noted Blood cultures obtained Continue cefepime and vancomycin until blood cultures negative times 24-48 hours Chest x-ray shows no acute abnormality UA does not appear infectious Trend labs (4) VANITA (acute kidney injury): Code(s): N17.9 - Acute kidney failure, unspecified Status: Acute Assessment and Plan: Creatinine elevated at 2.20 Current creatinine is 1.50 Baseline creatinine is 0.90 Most likely related to severe dehydration Trend labs Continue fluid resuscitation Avoid nephrotoxic medication Renal adjust medications as indicated (5) Fall: Code(s): W19.XXXA - Unspecified fall, initial encounter Status: Acute Assessment and Plan: Presented after a fall while mowing the lawn Unknown etiology Head ct ordered PT/OT ordered Neurocheck Q4H (6) Bipolar disorder: Qualifiers: Active/Remission status: currently active Current bipolar episode type: depressed Current episode severity: severe Psychotic features: with psychotic features Qualified Code(s): F31.5 - Bipolar disorder, current episode depressed, severe, with psychotic features Code(s): F31.9 - Bipolar disorder, unspecified Status: Acute Assessment and Plan: continue home meds Stable (7) Acute metabolic encephalopathy: Code(s): G93.41 - Metabolic encephalopathy Status: Acute Assessment and Plan: Mental status is a bit different from supposed baseline Head ct ordered Neuro checks Most likely related to acute medical condition Await for results of head ct. Time Spent With Patient Time: 53 minutes Time with patient: Greater than 35 minutes Subjective Date/time seen: 11/11/23 11:15 Interval history: 11/10/23 22:53 This is a 63-year-old male with past medical history significant for bipolar disorder, catatonic crisis, patient [facility] after being treated for catatonic crisis. Patient was brought to the emergency room after he was found down in the [place]d at his house he was doing yd work history taking is limited patient with altered mental status and incoherent at the time he was found down most of the history is been collected from who is at bedside. patient can not tell exactly how it happened or remember the events, EMS was called patient arrived via ambulance. Preliminary workup was significant for a creatinine of 2.2 sodium 148 CK 6771 patient tested negative for influenza type A influenza type B COVID and RSV. 11/11/2023 1115 Patient and are in the room. He currently denies any c
[2023-11-11] MEDS: LACTATED RINGERS 1,000 ML 250 ML IV CONT ×3 (11:32→20:01)
--- NOTE | 2023-11-11 15:15 | PCPTNOTE ---
On 11/11/23, the student, [Geovanna Mayer], provided care and completed [facility] documentation on this patient. I have reviewed the student's documentation and agree with the findings.
[2023-11-11] MEDS: HEPARIN SODIUM 5,000 UNITS/ML VIAL 5000 UNITS SUB-Q (21:05)
[2023-11-11] MEDS: CEFEPIME 2 GM/NS 50 ML 2 GM/50 ML BAG IVPB (21:06)
[2023-11-11 22:20] LABS: Vancomycin Random 5.6 ug/mL (10-20)
[2023-11-11] MEDS: VANCOMYCIN 1,000 MG/NS 250 ML 1,000 MG/250 ML BAG 250 MG IVPB (22:49)
[2023-11-12] VITALS (15 sets, daily range): BP systolic 123–154; BP diastolic 60–99; PULSE 66–108; RESP 12–18; TEMP 36.4–36.8; O2SAT 94–100
[2023-11-12] MEDS: LACTATED RINGERS 1,000 ML 250 ML IV CONT ×4 (01:11→19:32)
[2023-11-12 05:52] LABS: Estimated CRCL calculation 50 ml/min; Estimated Glomerular Filt Rate 56
--- NOTE | 2023-11-12 09:51 | P.PNIM_ITS ---
Progress Note: A&P Assessment and Plan (1) Heat exposure: Code(s): T67.9XXA - Effect of heat and light, unspecified, initial encounter Status: Acute Assessment and Plan: * Presented to the ED after being found by his on the ground outside * He stated that he fell around 1500hrs afternoon while trying to mow the grass * CK was 6226 on admission and is currently >43014 * IV fluids started in the Ed * Continue LR at 250 ml/hr * Continue to trend labs including CK * Encourage PO intake (2) Rhabdomyolysis: Code(s): M62.82 - Rhabdomyolysis Status: Acute Assessment and Plan: * CK on admission was 6226 * Ck currently at >42072 * Continue LR at 250 ml/hr * Repeat labs in the a.m. * Trend labs * Adjust therapy as indicated (3) Severe sepsis: Code(s): A41.9 - Sepsis, unspecified organism; R65.20 - Severe sepsis without septic shock Status: Acute Assessment and Plan: * Now resolved * White blood cell count 8.5, creatinine 1.30 * No source of infection noted * Blood cultures pending * Continue cefepime and vancomycin until blood cultures negative times 24-48 hours * Chest x-ray shows no acute abnormality * UA does not appear infectious * Trend labs (4) VANITA (acute kidney injury): Code(s): N17.9 - Acute kidney failure, unspecified Status: Acute Assessment and Plan: * Now resolved * Creatinine was elevated at 2.20 * Current creatinine is 1.30 * Baseline creatinine is 0.90 * Most likely related to severe dehydration * Trend labs * Continue fluid resuscitation * Avoid nephrotoxic medication * Renal adjust medications as indicated (5) Fall: Code(s): W19.XXXA - Unspecified fall, initial encounter Status: Acute Assessment and Plan: * Presented after a fall while mowing the lawn * Unknown etiology * PT/OT ordered * Neurocheck Q4H (6) Bipolar disorder: Qualifiers: Active/Remission status: currently active Current bipolar episode type: depressed Current episode severity: severe Psychotic features: with psychotic features Qualified Code(s): F31.5 - Bipolar disorder, current episode depressed, severe, with psychotic features Code(s): F31.9 - Bipolar disorder, unspecified Status: Acute Assessment and Plan: * continue home meds * Stable (7) Acute metabolic encephalopathy: Code(s): G93.41 - Metabolic encephalopathy Status: Acute Assessment and Plan: * Mental status is a bit different from supposed baseline * Head ct reveals no significant abnormality seen * Neuro checks q.6 * Initiate fall safety precautions Plan -patient is hemodynamically stable, not requiring any oxygen -he requesting ad clarisa, yet still has unsteady gait according to -downgrade patient to med tele, continue to monitor labs Time Spent With Patient Time with patient: 25 - 35 minutes Subjective Date/time seen: 11/12/23 09:51 Interval history: 11/10/23 22:53 This is a 63-year-old male with past medical history significant for bipolar disorder, catatonic crisis, patient [facility] after being treated for catatonic crisis. Patient was brought to the emergency room after he was found down in the [place] at his house he was doing yd work history taking
--- NOTE | 2023-11-12 09:51 | PM.IMPN ---
Progress Note: A&P Assessment and Plan (1) Heat exposure: Code(s): T67.9XXA - Effect of heat and light, unspecified, initial encounter Status: Acute Assessment and Plan: Presented to the ED after being found by his on the ground outside He stated that he fell around 1500hrs afternoon while trying to mow the grass CK was 6226 on admission and is currently >35667 IV fluids started in the Ed Continue LR at 250 ml/hr Continue to trend labs including CK Encourage PO intake (2) Rhabdomyolysis: Code(s): M62.82 - Rhabdomyolysis Status: Acute Assessment and Plan: CK on admission was 6226 Ck currently at >14289 Continue LR at 250 ml/hr Repeat labs in the a.m. Trend labs Adjust therapy as indicated (3) Severe sepsis: Code(s): A41.9 - Sepsis, unspecified organism; R65.20 - Severe sepsis without septic shock Status: Acute Assessment and Plan: Now resolved White blood cell count 8.5, creatinine 1.30 No source of infection noted Blood cultures pending Continue cefepime and vancomycin until blood cultures negative times 24-48 hours Chest x-ray shows no acute abnormality UA does not appear infectious Trend labs (4) VANITA (acute kidney injury): Code(s): N17.9 - Acute kidney failure, unspecified Status: Acute Assessment and Plan: Now resolved Creatinine was elevated at 2.20 Current creatinine is 1.30 Baseline creatinine is 0.90 Most likely related to severe dehydration Trend labs Continue fluid resuscitation Avoid nephrotoxic medication Renal adjust medications as indicated (5) Fall: Code(s): W19.XXXA - Unspecified fall, initial encounter Status: Acute Assessment and Plan: Presented after a fall while mowing the lawn Unknown etiology PT/OT ordered Neurocheck Q4H (6) Bipolar disorder: Qualifiers: Active/Remission status: currently active Current bipolar episode type: depressed Current episode severity: severe Psychotic features: with psychotic features Qualified Code(s): F31.5 - Bipolar disorder, current episode depressed, severe, with psychotic features Code(s): F31.9 - Bipolar disorder, unspecified Status: Acute Assessment and Plan: continue home meds Stable (7) Acute metabolic encephalopathy: Code(s): G93.41 - Metabolic encephalopathy Status: Acute Assessment and Plan: Mental status is a bit different from supposed baseline Head ct reveals no significant abnormality seen Neuro checks q.6 Initiate fall safety precautions Plan -patient is hemodynamically stable, not requiring any oxygen -he requesting ad clarisa, yet still has unsteady gait according to -downgrade patient to [place], continue to monitor labs Time Spent With Patient Time with patient: 25 - 35 minutes Subjective Date/time seen: 11/12/23 09:51 Interval history: 11/10/23 22:53 This is a 63-year-old male with past medical history significant for bipolar disorder, catatonic crisis, [facility] being treated for catatonic crisis. Patient was brought to the emergency room after he was found down in the yd at his house he was doing yd work history taking is limited patient with altered mental status and incoherent at the time he was found down most of the history is been collected from who is at bedside. patient can not tell exactly how it happened or remember the events, EMS was called patient arrived via ambulance. Preliminary workup was significant for a creatinine of 2.2 sodium 148 CK 6771 patient tested negative for influenza type A influenza type B COVID and RSV. 11/12/2023 1100 Patient and are in the room. He currently denies any chest pain, shortness of breath, nausea, vomiting. He did state that he was hungry.
[2023-11-12] MEDS: HEPARIN SODIUM 5,000 UNITS/ML VIAL 5000 UNITS SUB-Q ×2 (10:03→21:23)
[2023-11-12] MEDS: BENZTROPINE MESYLATE 0.5 MG TABLET PO ×2 (10:03→19:33)
[2023-11-12 12:01] LABS: Anion Gap 7 mmol/L (4-12); Basophils Percent Auto 0.2 % (0.2-1.2); Blood Urea Nitrogen 15 mg/dL (9-20); Calcium 8.6 mg/dL (8.4-10.2); Carbon Dioxide 24 mmol/L (22-30); Chloride 114 mmol/L (98-107); Eosinophils Absolute Auto 0.5 K/mm3 (0-0.3); Eosinophils Percent Auto 5.9 % (0-4.4); Estimated CRCL calculation 50 ml/min; Estimated Glomerular Filt Rate 56; Glucose 86 mg/dL (65-110); Hematocrit 38.8 % (42.0-52.0); Hemoglobin 12.7 g/dL (14.0-18.0); Immature Granulocyte Absolute 0.03 K/mm3 (0.00-0.031); Immature Granulocyte Percent A 0.4 % (0-0.5); Immature Platelet Fraction Pct 3.8 % (0.9-11.2); Lymphocytes Absolute Auto 1.74 K/mm3 (0.9-3.2); Lymphocytes Percent Auto 20.5 % (18.3-44.2); Mean Corpuscular HGB Conc 32.7 g/dl (32-36); Mean Corpuscular Hemoglobin 31.6 pg (26-34); Mean Corpuscular Volume 96.5 fl (80-100); Mean Platelet Volume 11.1 fl (7.4-10.4); Monocytes Absolute Auto 0.5 K/mm3 (0.1-0.6); Monocytes Percent Auto 5.3 % (2.6-8.5); Neutrophils Absolute Auto 5.8 K/mm3 (1.3-6.7); Neutrophils Percent Auto 67.7 % (45.5-73.1); Platelet Count Result 108 k/mm3 (150-375); Potassium 3.9 mmol/L (3.4-5.0); Red Blood Count 4.02 M/mm3 (4.6-6.20); Red Cell Distribution Width 12.4 % (11.5-14.5); Sodium 145 mmol/L (137-145); White Blood Count 8.5 K/mm3 (4.5-10.0)
[2023-11-12 18:06] LABS: Lactic Acid Reflex 1.8 mmol/L (0.7-2.0)
[2023-11-12] MEDS: QUEtiapine FUMARATE XR 200 MG TAB.ER.24H 600 MG BY MOUTH (21:23)
[2023-11-12] MEDS: CEFEPIME 2 GM/NS 50 ML 2 GM/50 ML BAG IVPB (21:46)
[2023-11-12 23:14] LABS: Vancomycin Random 6.2 ug/mL (10-20)
[2023-11-13] VITALS (11 sets, daily range): BP systolic 127–141; BP diastolic 8–97; PULSE 54–90; RESP 12–20; TEMP 36.6–37.1; O2SAT 98–100
[2023-11-13] MEDS: VANCOMYCIN 1,250 MG/NS 250 ML 1,250 MG/250 ML BAG 166.67 MG IVPB (00:43)
[2023-11-13] MEDS: LACTATED RINGERS 1,000 ML 250 ML IV CONT (00:43)
[2023-11-13 07:23] LABS: Basophils Percent Auto 0.3 % (0.2-1.2); Eosinophils Absolute Auto 0.6 K/mm3 (0-0.3); Hematocrit 38.8 % (42.0-52.0); Immature Granulocyte Absolute 0.02 K/mm3 (0.00-0.031); Immature Granulocyte Percent A 0.3 % (0-0.5); Immature Platelet Fraction Pct 3.4 % (0.9-11.2); Lymphocytes Absolute Auto 1.65 K/mm3 (0.9-3.2); Lymphocytes Percent Auto 23.5 % (18.3-44.2); Mean Corpuscular HGB Conc 33.5 g/dl (32-36); Mean Corpuscular Hemoglobin 31.7 pg (26-34); Mean Corpuscular Volume 94.6 fl (80-100); Monocytes Absolute Auto 0.4 K/mm3 (0.1-0.6); Monocytes Percent Auto 6.3 % (2.6-8.5); Neutrophils Absolute Auto 4.3 K/mm3 (1.3-6.7); Neutrophils Percent Auto 60.6 % (45.5-73.1); Platelet Count Result 117 k/mm3 (150-375); Red Cell Distribution Width 12.3 % (11.5-14.5)
[2023-11-13 07:35] LABS: Anion Gap 4 mmol/L (4-12); Blood Urea Nitrogen 12 mg/dL (9-20); Calcium 8.9 mg/dL (8.4-10.2); Carbon Dioxide 31 mmol/L (22-30); Chloride 110 mmol/L (98-107); Estimated CRCL calculation 64 ml/min; Estimated Glomerular Filt Rate > 60; Glucose 84 mg/dL (65-110); Potassium 3.5 mmol/L (3.4-5.0); Sodium 145 mmol/L (137-145)
--- NOTE | 2023-11-13 07:48 | PM.IMPN ---
Progress Note: A&P Assessment and Plan (1) Acute metabolic encephalopathy: Code(s): G93.41 - Metabolic encephalopathy Status: Acute Assessment and Plan: Likely related to patients acute medical condition including head exposure, sepsis, and rhabdomyolysis. - Head CT: No Evidence of intracranial hemorrhage, mass lesion, or acute infarct. - Neuro checks - Continue treatment of acute medical conditions Patient back to baseline AOx4. (2) Severe sepsis: Code(s): A41.9 - Sepsis, unspecified organism; R65.20 - Severe sepsis without septic shock Status: Acute Assessment and Plan: Patient meeting SIRS criteria on admission: febrile 102.7 F, tachycardic HR 135, tachypneic RR 42, and hypotensive BP 95/60. WBC 16.8, lactic acid 12, and creatinine 2.20. Likely due to patient rhabdomyolysis and being found down outside in the heat - WBC, lactic acid, and creatinine now WNL - Patient remains afebrile - No source of infection UA non concerning for UTI Chest XR no acute cardiopulmonary process - Blood cultures obtained 11/09: NGTD - Started on Vancomycin and cefepime on 11/10, will discontinue 11/12 as patient is hemodynamically stable and labs are WNL Resolved. (3) Rhabdomyolysis: Code(s): M62.82 - Rhabdomyolysis Status: Acute Assessment and Plan: Patient down for approximately 3.5 hours outside. CK on admission was 6226 then increased to > 21967. Creatinine elevated 2.20 on admission. Potassium remains WNL. - CK 9264 on am labs - K WNL - BUN/Cr baseline WNL - IV LR 150 ml/hr - Monitor vital signs, I and O's, neuro status and patient is a fall risk - Monitor serum electrolytes and CBC (4) VANITA (acute kidney injury): Code(s): N17.9 - Acute kidney failure, unspecified Status: Acute Assessment and Plan: BUN/Cr 18/2.2 with GFR 30 on admission. Baseline WNL. Likely due to patients dehydration and rhabdomyolysis. - BUN/Cr WNL on am labs - IV LR 150 ml/hr - Monitor vital signs, I and O's, and patient is a fall risk - Monitor serum electrolytes and CBC Resolved. (5) Heat exposure: Code(s): T67.9XXA - Effect of heat and light, unspecified, initial encounter Status: Acute Assessment and Plan: Patient fell in his yard while mowing the grass and was down for approximately 3.5 hours. Temperature on arrival was 102.7 F. - Patient remains afebrile - Continue IV LR 150 ml/hr - Monitor temperatures (6) Fall: Code(s): W19.XXXA - Unspecified fall, initial encounter Status: Acute Assessment and Plan: Patient fell while mowing the lawn. Unable to remember what caused the fall. - Head CT: No Evidence of intracranial hemorrhage, mass lesion, or acute infarct. - PT/OT Recommending home health therapy (7) Bipolar disorder: Qualifiers: Active/Remission status: currently active Current bipolar episode type: depressed Current episode severity: severe Psychotic features: with psychotic features Qualified Code(s): F31.5 - Bipolar disorder, current episode depressed, severe, with psychotic features Code(s): F31.9 - Bipolar disorder, unspecified Status: Acute Assessment and Plan: Chronic. Per chart review patient has history of catatonic crisis. [facility] - Continue quetiapine 600 mg daily - Monitor Time Spent With Patient Time with patient: 25 - 35 minutes Subjective Date/time seen: 11/13/23 07:48 Interval history: 63 year old male with past medical history of bipolar and catatonic crisis presents to the hospital after being found down for approximately 3.5 hours and had altered mental status. Patient is pleasant lying comfortably in bed with at bedside. Patient remains AO x4. will discontinue his antibiotics today he remains afebrile, without leukocytosis, and blood cultures continue show no growth to date. His CK remains elevated at 9264. He remains on
[2023-11-13] MEDS: HEPARIN SODIUM 5,000 UNITS/ML VIAL 5000 UNITS SUB-Q ×2 (08:58→22:11)
[2023-11-13] MEDS: BENZTROPINE MESYLATE 0.5 MG TABLET PO ×2 (08:58→17:12)
[2023-11-13 09:25] LABS: Creatine Kinase 9264 U/L (55-170)
[2023-11-13] MEDS: LACTATED RINGERS 1,000 ML 150 ML IV CONT ×2 (11:55→18:45)
[2023-11-13] MEDS: QUEtiapine FUMARATE XR 200 MG TAB.ER.24H 600 MG BY MOUTH (22:09)
[2023-11-14] VITALS (9 sets, daily range): BP systolic 130–155; BP diastolic 87–96; PULSE 61–80; RESP 16–20; TEMP 36.6–36.9; O2SAT 100
[2023-11-14] MEDS: LACTATED RINGERS 1,000 ML 150 ML IV CONT ×4 (01:26→20:30)
[2023-11-14 04:37] LABS: Basophils Percent Auto 0.3 % (0.2-1.2); Eosinophils Absolute Auto 0.7 K/mm3 (0-0.3); Eosinophils Percent Auto 9.9 % (0-4.4); Hemoglobin 12.1 g/dL (14.0-18.0); Immature Granulocyte Absolute 0.02 K/mm3 (0.00-0.031); Immature Granulocyte Percent A 0.3 % (0-0.5); Immature Platelet Fraction Pct 5.8 % (0.9-11.2); Lymphocytes Absolute Auto 1.75 K/mm3 (0.9-3.2); Mean Corpuscular HGB Conc 33.6 g/dl (32-36); Mean Corpuscular Hemoglobin 31.8 pg (26-34); Mean Corpuscular Volume 94.5 fl (80-100); Mean Platelet Volume 10.6 fl (7.4-10.4); Monocytes Absolute Auto 0.3 K/mm3 (0.1-0.6); Neutrophils Absolute Auto 3.9 K/mm3 (1.3-6.7); Neutrophils Percent Auto 58.5 % (45.5-73.1); Platelet Count Result 106 k/mm3 (150-375); Red Blood Count 3.81 M/mm3 (4.6-6.20); Red Cell Distribution Width 12.2 % (11.5-14.5); White Blood Count 6.7 K/mm3 (4.5-10.0)
[2023-11-14 04:55] LABS: Anion Gap 7 mmol/L (4-12); Blood Urea Nitrogen 11 mg/dL (9-20); Calcium 8.8 mg/dL (8.4-10.2); Carbon Dioxide 28 mmol/L (22-30); Chloride 106 mmol/L (98-107); Estimated CRCL calculation 70 ml/min; Estimated Glomerular Filt Rate > 60; Glucose 94 mg/dL (65-110); Potassium 3.5 mmol/L (3.4-5.0); Sodium 141 mmol/L (137-145)
[2023-11-14 05:09] LABS: Creatine Kinase 4588 U/L (55-170)
--- NOTE | 2023-11-14 08:36 | PM.IMPN ---
Progress Note: A&P Assessment and Plan (1) Acute metabolic encephalopathy: Code(s): G93.41 - Metabolic encephalopathy Status: Acute Assessment and Plan: Likely related to patients acute medical condition including head exposure, sepsis, and rhabdomyolysis. - Head CT: No Evidence of intracranial hemorrhage, mass lesion, or acute infarct. - Neuro checks - Continue treatment of acute medical conditions Patient back to baseline AOx4. (2) Severe sepsis: Code(s): A41.9 - Sepsis, unspecified organism; R65.20 - Severe sepsis without septic shock Status: Acute Assessment and Plan: Patient meeting SIRS criteria on admission: febrile 102.7 F, tachycardic HR 135, tachypneic RR 42, and hypotensive BP 95/60. WBC 16.8, lactic acid 12, and creatinine 2.20. Likely due to patient rhabdomyolysis and being found down outside in the heat - WBC, lactic acid, and creatinine now WNL - Patient remains afebrile - No source of infection UA non concerning for UTI Chest XR no acute cardiopulmonary process - Blood cultures obtained 11/09: NGTD - Started on Vancomycin and cefepime on 11/10, will discontinue 11/12 as patient is hemodynamically stable and labs are WNL Resolved. (3) Rhabdomyolysis: Code(s): M62.82 - Rhabdomyolysis Status: Acute Assessment and Plan: Patient down for approximately 3.5 hours outside. CK on admission was 6226 then increased to > 36187. Creatinine elevated 2.20 on admission. Potassium remains WNL. - CK 4588 on am labs - K WNL - BUN/Cr baseline WNL - IV LR 150 ml/hr - Monitor vital signs, I and O's, neuro status and patient is a fall risk - Monitor serum electrolytes and CBC (4) VANITA (acute kidney injury): Code(s): N17.9 - Acute kidney failure, unspecified Status: Acute Assessment and Plan: BUN/Cr 18/2.2 with GFR 30 on admission. Baseline WNL. Likely due to patients dehydration and rhabdomyolysis. - BUN/Cr WNL on am labs - IV LR 150 ml/hr - Monitor vital signs, I and O's, and patient is a fall risk - Monitor serum electrolytes and CBC Resolved. (5) Heat exposure: Code(s): T67.9XXA - Effect of heat and light, unspecified, initial encounter Status: Acute Assessment and Plan: Patient fell in his yard while mowing the grass and was down for approximately 3.5 hours. Temperature on arrival was 102.7 F. - Patient remains afebrile - Continue IV LR 150 ml/hr - Monitor temperatures (6) Fall: Code(s): W19.XXXA - Unspecified fall, initial encounter Status: Acute Assessment and Plan: Patient fell while mowing the lawn. Unable to remember what caused the fall. - Head CT: No Evidence of intracranial hemorrhage, mass lesion, or acute infarct. - PT/OT Patient ambulated 200 ft on 11/13 with minimal assistance during turns Recommending home health therapy (7) Bipolar disorder: Qualifiers: Active/Remission status: currently active Current bipolar episode type: depressed Current episode severity: severe Psychotic features: with psychotic features Qualified Code(s): F31.5 - Bipolar disorder, current episode depressed, severe, with psychotic features Code(s): F31.9 - Bipolar disorder, unspecified Status: Acute Assessment and Plan: Chronic. Per chart review patient has history of catatonic crisis. Patient previously received ECT treatment at [facility]. - Continue quetiapine 600 mg daily - Monitor Time Spent With Patient Time with patient: 25 - 35 minutes Subjective Date/time seen: 11/14/23 08:36 Interval history: 63 year old male with past medical history of bipolar and catatonic crisis presents to the hospital after being found down for approximately 3.5 hours and had altered mental status. Patient pleasant lying comfortably in bed. Patient endorses weakness. He worked with PT/OT today and was able to ambulate 200 ft with minimum assistance during turns. PT/OT continues to follow
[2023-11-14] MEDS: BENZTROPINE MESYLATE 0.5 MG TABLET PO ×2 (08:37→17:02)
[2023-11-14] MEDS: HEPARIN SODIUM 5,000 UNITS/ML VIAL 5000 UNITS SUB-Q ×2 (08:39→20:29)
[2023-11-14 14:42] LABS: Creatine Kinase 3179 U/L (55-170)
--- NOTE | 2023-11-14 17:40 | PC.NURSE ---
This patient, Norris Daniels, was received from [facility] on 11/14/23 at 1740. Patient/family oriented to unit policies and routines.
[2023-11-14] MEDS: QUEtiapine FUMARATE XR 200 MG TAB.ER.24H 600 MG BY MOUTH (20:29)
[2023-11-15] VITALS: PULSE 64
[2023-11-15 04:00] VITALS: PULSE 80
[2023-11-15 05:43] LABS: Basophils Percent Auto 0.4 % (0.2-1.2); Eosinophils Absolute Auto 0.5 K/mm3 (0-0.3); Hematocrit 35.2 % (42.0-52.0); Hemoglobin 11.7 g/dL (14.0-18.0); Immature Granulocyte Absolute 0.03 K/mm3 (0.00-0.031); Immature Granulocyte Percent A 0.6 % (0-0.5); Immature Platelet Fraction Pct 3.8 % (0.9-11.2); Lymphocytes Absolute Auto 1.31 K/mm3 (0.9-3.2); Lymphocytes Percent Auto 26.6 % (18.3-44.2); Mean Corpuscular HGB Conc 33.2 g/dl (32-36); Mean Corpuscular Hemoglobin 31.5 pg (26-34); Mean Corpuscular Volume 94.6 fl (80-100); Mean Platelet Volume 10.2 fl (7.4-10.4); Monocytes Absolute Auto 0.3 K/mm3 (0.1-0.6); Monocytes Percent Auto 6.7 % (2.6-8.5); Neutrophils Absolute Auto 2.7 K/mm3 (1.3-6.7); Neutrophils Percent Auto 54.7 % (45.5-73.1); Platelet Count Result 120 k/mm3 (150-375); Red Blood Count 3.72 M/mm3 (4.6-6.20); White Blood Count 4.9 K/mm3 (4.5-10.0)
[2023-11-15 06:00] VITALS: BP 125/85; PULSE 89; RESP 20; TEMP 36.4; O2SAT 99
[2023-11-15 06:09] LABS: Anion Gap 5 mmol/L (4-12); Blood Urea Nitrogen 11 mg/dL (9-20); Calcium 8.6 mg/dL (8.4-10.2); Carbon Dioxide 29 mmol/L (22-30); Chloride 106 mmol/L (98-107); Estimated CRCL calculation 63 ml/min; Estimated Glomerular Filt Rate > 60; Glucose 85 mg/dL (65-110); Potassium 3.3 mmol/L (3.4-5.0); Sodium 140 mmol/L (137-145)
[2023-11-15 06:10] LABS: Creatine Kinase 2136 U/L (55-170)
[2023-11-15 08:00] VITALS: PULSE 82
[2023-11-15] MEDS: LACTATED RINGERS 1,000 ML 150 ML IV CONT (09:17)
[2023-11-15] MEDS: BENZTROPINE MESYLATE 0.5 MG TABLET PO (09:18)
[2023-11-15] MEDS: HEPARIN SODIUM 5,000 UNITS/ML VIAL 5000 UNITS SUB-Q (09:18)
[2023-11-15] MEDS: POTASSIUM CHLORIDE 20 MEQ ER TABLET 40 MEQ PO (09:18)
[2023-11-15 12:00] VITALS: PULSE 73
--- NOTE | 2023-11-15 13:10 | PM.DS ---
DS: Admitting Diagnosis Discharge Date 11/15/2023 Admitting Diagnosis acute metabolic encephalopathy severe sepsis rhabdomyolysis acute kidney injury heat exposure fall bipolar disorder DS: Discharge Diagnosis Discharge Diagnosis (1) Acute metabolic encephalopathy: Code(s): G93.41 - Metabolic encephalopathy Status: Acute (2) Severe sepsis: Code(s): A41.9 - Sepsis, unspecified organism; R65.20 - Severe sepsis without septic shock Status: Acute (3) Rhabdomyolysis: Code(s): M62.82 - Rhabdomyolysis Status: Acute (4) VANITA (acute kidney injury): Code(s): N17.9 - Acute kidney failure, unspecified Status: Acute (5) Heat exposure: Code(s): T67.9XXA - Effect of heat and light, unspecified, initial encounter Status: Acute (6) Fall: Code(s): W19.XXXA - Unspecified fall, initial encounter Status: Acute (7) Bipolar disorder: Qualifiers: Active/Remission status: currently active Current bipolar episode type: depressed Current episode severity: severe Psychotic features: with psychotic features Qualified Code(s): F31.5 - Bipolar disorder, current episode depressed, severe, with psychotic features Code(s): F31.9 - Bipolar disorder, unspecified Status: Acute DS: Summary Hospital Course Reason for hospitalization: acute metabolic encephalopathy severe sepsis rhabdomyolysis acute kidney injury heat exposure fall bipolar disorder Hospital Course: 63 year old male with past medical history of bipolar and catatonic crisis presents to the hospital after being found down for approximately 3.5 hours in his yard and had altered mental status. On admission patient meeting SIRS criteria as he was febrile 102.7 F, tachycardic HR 135, tachypneic RR 42, and hypotensive BP 95/60. With a WBC 16.8, lactic acid 12, and creatinine 2.20. Head CT was performed for patient's confusion and revealed no evidence of an intracranial hemorrhage, mass lesion, acute infarct. Throughout admission patient returned to his baseline A&O x4. UA was nonconcerning for UTI and chest XR was nonconcerning for infection. Blood cultures were obtained. He was started on vancomycin and cefepime at that time. Throughout admission patient remained afebrile and his white blood cell count returned to normal. Blood cultures continued to show NGTD for 72 hours and the antibiotics were discontinued on 11/12. patient's sepsis and VANITA was likely a result of his rhabdomyolysis. On admission his CK was 6226 then increase to greater than 16,000. he was started on IV fluids and the CK continued to downtrend. The VANITA resolved and all electrolytes remained within normal limits including potassium. Patient was evaluated by PT / OT during his admission and was able to ambulate 200 ft with minimal assistance. PT/ OT were recommending home health therapy however patient refused. Prior discharge patient denied weakness, muscle pains, chest pain, shortness a breath, nausea/vomiting, and changes in bowel /bladder. Patient discharged home with family in stable condition. He is to follow-up with his PCP in 1-2 weeks. Status at Discharge Functional status at discharge: independent ambulation Time Spent with Patient Time attestation: Total time spent providing and/or coordinating discharge services: Time spent: Greater than 30 minutes Exam Narrative: AF HR 89 RR 20 SpO2 99 BP 125/85 General: male in no acute respiratory distress who is nontoxic appearing, lying semi recumbent in bed. Chest: Lungs are clear to auscultation bilaterally. No wheezes or crackles. CV: Heart was regular rate and rhythm. S1/S2. No murmurs, gallops, or rubs. Abd: Abdomen was soft. Nontender. Nondistended. Positive bowel sounds. No organomegaly or masses. Ext: No clubbing, cyanosis, or edema. 2+ DP pulses bilaterally. Neuro: Patient is alert and oriented x4. Strength is 5/5 in both upper and lower extre
== END 2023-11-15 14:00 | disposition home or self-care (01) | DRG 871 ==
LOC: ANHED 23:33 → ANHIMU 23:39 → ANH3MED 11-14 17:34
PROVIDERS: Nurse Practitioner; Admitting Provider Internal Medicine; Emergency Provider Emergency Medicine; PCP Internal Medicine; Visit Provider Student in an Organized Health Care Education/Training Program
DX: A41.9 Sepsis, unspecified organism (principal); G93.41 Metabolic encephalopathy; M62.82 Rhabdomyolysis; N17.9 Acute kidney failure, unspecified; T67.9XXA Effect of heat and light, unspecified, initial encounter; R65.20 Severe sepsis without septic shock; F31.9 Bipolar disorder, unspecified; Z20.822 Contact with and (suspected) exposure to COVID-19
CPT/HCPCS: 36415; 36600; 70450; 71046; 80048; 80053; 80202; 81001; 82375; 82550; 82565; 82805; 83050; 83605; 83735; 85025; 85055; 85610; 85730; 86140; 87040; 87637; 87641; 93005; 96361; 96365; 97110; 97161; 97165; 97530; 97535; 99285; A9270; G0378; J0692; J1644; J3370; J7030; J7120

== ENCOUNTER 2024-12-14 18:34 | Emergency (ER) | payer BC, SELFPAY ==
[2024-12-14 18:57] VITALS: BP 145/128; PULSE 82; RESP 18; TEMP 36.9; O2SAT 99
[2024-12-14 19:14] VITALS: BP 103/80
--- NOTE | 2024-12-14 19:26 | ED_ITS ---
HPI - Skin/Abscess/Foreign Bdy General Chief complaint: Skin/Abscess/Foreign Body Stated complaint: RASH Time Seen by Provider: 12/14/24 19:20 Source: patient, family () and RN notes reviewed Mode of arrival: ambulatory Limitations: no limitations History of Present Illness HPI narrative: presents patient today complaining of an itchy rash to the right forehead that was noted this evening. No OTC treatment prior to arrival. No new products, plantar animal exposures, medications, foods. was diagnosed with shingles today and wanted to make sure that patient does not have same. Related Data Home Medications ?Medication ?Instructions ?Recorded ?Confirmed ?Last Taken ?Type benztropine 0.5 mg BID 11/10/23 11/10/23 11/10/23 06:00 History quetiapine 600 mg ACHS 11/10/23 11/10/23 11/09/23 20:00 History quetiapine 50 mg tablet,extended mg PO 12/14/24 Unknown History release 24 hr Allergies Allergy/AdvReac Type Severity Reaction Status Date / Time No Known Allergies Allergy Verified 12/14/24 19:32 [facility] Past Medical History Medical History Bipolar disorder Family History Family History Mother Hypertension Father Crohn disease Sibling Patient's brother is in good health Patient's sister is in good health Social History Social History Smoking status: Never smoker Alcohol intake: never Substance use: never Do You Feel Safe in your Home?: Yes Lack of Transportation: No Lack of Food: Never True Current Housing: I Have Housing Concerned About Future Housing: No Difficulty Paying Gas/Electric Bills: No Difficulty Paying for Meds: No Currently Unemployed: No Education: High School Diploma/GED Difficulty w/ Childcare or Family Care: No Spiritual care concerns: No Comments At time of signature, I have reviewed and agree with nursing past medical, surgical, social and family history unless otherwise noted. Please see nursing chart for further information. There is no relevant family history pertinent to the presenting complaint Exam Narrative: GENERAL: Well-appearing, well-nourished, and in no acute distress. HEAD: Normocephalic, atraumatic. EYES: EOMI. PERRL. No redness or drainage. Conjunctivae normal. ENT: Mucous membranes pink and moist. NECK: Normal AROM. CHEST: No respiratory distress. EXTREMITIES: Normal range of motion. No edema. SKIN: Warm, dry. Capillary refill normal. Normal skin turgor. Large patch of erythematous maculopapular rash to the right forehead with faint honey crusting. Satellite lesions to the left forehead as well. NEURO: No focal deficits. Alert and oriented x3. Gait steady. PSYCH: Normal affect. No signs of depression or anxiety. Course Course Level of Care: Express Care Visit Vital Signs Vital signs: Vital Signs Temperature 98.4 F 12/14/24 18:57 Pulse Rate 82 12/14/24 18:57 Respiratory Rate 18 12/14/24 18:57 Blood Pressure 145/128 H 12/14/24 18:57 Pulse Oximetry 99 12/14/24 18:57 Temperature 98.4 F 12/14/24 18:57 Pulse Rate 82 12/14/24 18:57 Respiratory Rate 18 12/14/24 18:57 Blood Pressure 103/80 12/14/24 19:14 Pulse Oximetry 99 12/14/24 18:57 Reviewed MDM - Skin/Abscess/Foreign Bdy MDM Narrative Medical decision making narrative: 64-year-old male patient presents today with complaining of a pruritic red rash to the right forehead that was noted this evening. No OTC treatment prior to arrival. No pain associated with the rash. Upon exam, there is a large patch of erythematous maculopapular rash with faint honey crusting, consistent with contact dermatitis with overlying impetigo. Prescription for mupirocin sent to pharmacy. BP upon arrival was 145/128. Repeat was 103/80. Patient does not have history of HTN. Differential Diagnosis Differential diagnosis: Likely viral exanthem, dermatophytosis, herpes zoster, cellulitis, eczema, impetigo and contact dermatitis Critical Care Time Critical Care Time Critical Care Time: No Discharge Plan Discharge Clinical Impression: Impetigo Patient Disposition: Home Condition: Stable Instructions: Impetigo (ED) Additional Instructions: Your rash is likely due to impetigo. Please use the mupirocin ointment as directed. Wash daily with soap and water. Wash your hands frequently to as not spread the area. Up with your PCP next week if symptoms are not improving. Patient Language: Nepali Prescriptions: New mupirocin 2 % ointment 1 applic topical BID 7 Days Qty: 22 0RF No Action quetiapine 600 mg ACHS benztropine 0.5 mg BID Follow-up/Referrals: PHYSICIAN,CH[employer] MACHINE [Primary Care Provider] - Time of Disposition: 19:26
== END 2024-12-14 19:35 | disposition home or self-care (01) ==
PROVIDERS: Emergency Provider Nurse Practitioner
DX: L01.00 Impetigo, unspecified (principal); F31.9 Bipolar disorder, unspecified
CPT/HCPCS: 99213; G0463